=== PATIENT | female | born 1975 | race Caucasian/White ===

== ENCOUNTER 2017-06-19 22:29 | Emergency (ER) | payer SELFPAY ==
--- NOTE | 2017-06-19 22:55 | ER Document Report ---
HPI - HPI Patient complains to provider of: Left foot injury Pain Level: 3 Context: Patient is a 41-year-old female comes emergency department for chief complaint of pain with swelling and bruising to her first and second toes of the left foot. She states that she accidentally kicked a dresser this morning when she got up. She can walk but she is limping. She denies any daily medications or known medical problems. She denies any other complaints. - REPRODUCTIVE Reproductive: DENIES: : Past Medical History - General Information source: Patient - Social History Smoking Status: Never Smoker Frequency of alcohol use: None Drug Abuse: None Lives with: Family Family History: Reviewed & Not Pertinent - Medical History Medical History: Negative Endocrine Medical History: Denies: Hx Diabetes Mellitus Type 1, Hx Diabetes Mellitus Type 2 Past Surgical History: Reports: Hx Cholecystectomy, Hx Gynecologic Surgery - explor lap-- was discovered to have endometriosis 2 years ago - Immunizations Hx Diphtheria, Pertussis, Tetanus Vaccination: Yes Vertical Provider Document - CONSTITUTIONAL General Appearance: WD/WN, Mild Distress - Patient winces with walking but otherwise is in no distress - INFECTION CONTROL TRAVEL OUTSIDE OF THE [place] IN LAST 30 DAYS: No - HEENT HEENT: Atraumatic, Normocephalic - NECK Neck: Normal Inspection - RESPIRATORY Respiratory: Breath Sounds Normal, No Respiratory Distress O2 Sat by Pulse Oximetry: 98 - CARDIOVASCULAR Cardiovascular: Regular Rate, Regular Rhythm - GI/ABDOMEN Gastrointestinal: Abdomen Soft, Abdomen Non-Tender - BACK Back: Normal Inspection - MUSCULOSKELETAL/EXTREMETIES Musculoskeletal/Extremeties: Tender - Over the dorsal aspect, plantar aspect is normal. Good capillary refill and sensation. Range of motion still intact. No obvious deformity. Normal lower extremity exam otherwise. - NEURO Level of Consciousness: Awake, Alert, Appropriate - DERM Integumentary: Warm, Dry, No Rash Course - Re-evaluation Re-evalutation: Patient asking to leave, delay in obtaining radiology read. First view shows questionable tiny nondisplaced fracture of the tuft of the second toe of the left foot. No lateral view. Because of bruising and questionable nondisplaced fracture I did provide patient with pain medication to a very limited amount, patient placed in torey tape and postop shoe on patient preference, discussed care, follow-up, return precautions. Patient given supplies to perform torey taping at home. Patient states satisfaction and agreement. - Vital Signs Vital signs: Temp Pulse Resp BP Pulse Ox 98.2 F 71 20 127/69 H 98 06/19/17 22:49 06/19/17 22:49 06/19/17 22:49 06/19/17 22:49 06/19/17 22:49 Procedures - Immobilization Left foot Pre-Proc Neuro Vasc Exam: Normal Immobilizer type: Other - Torye taping with postop shoe performed for first and second toes of the left foot Post-Proc Neuro Vasc Exam: Normal Alignment checked and good: Yes Discharge - Discharge Clinical Impression: Toe injury Qualifiers: Encounter type: initial encounter Laterality: left Qualified Code(s): S99.922A - Unspecified injury of left foot, initial encounter Condition: Stable Disposition: HOME, SELF-CARE Additional Instructions: There is a questionable nondisplaced fracture pending final reading of the x-ray , no dislocations or displaced fractures are seen. Torey tape the toes to help them heal and improve, elevate, you can apply ice 3-4 times a day, take the ibuprofen to reduce swelling, take the pain medication only if needed. Elevate your foot the next couple of days. After swelling is gone and pain resolves resume normal activity. Return for any concerning symptoms including severe swelling or pain. Prescriptions: Hydrocodone/Acetaminophen [[place] 5-325 Tablet] 1 - 2 each PO Q4H PRN #8 tablet PRN Reason: Ibuprofen 800 mg PO Q8 #20 tablet
[2017-06-19] MEDS ORDERED: HYDROCODONE/ACETAMINOPHEN 5-325 MG (6 TAB/ER DISP) PO PRN (23:34)
--- NOTE | 2017-06-19 23:43 | RADIOLOGY REPORT (SQ) ---
EXAM DESCRIPTION: TOE LEFT CLINICAL HISTORY: 41 years, Female, pain s/p injury COMPARISON: None. NUMBER OF VIEWS: Two Technique: Two frontal views. Limited: No lateral view. Findings: Bones, joints, and soft tissues of the left second toe appear intact. IMPRESSION: No acute findings. Limited: No lateral view.
[2017-06-19 23:44] VITALS: BP 106/68
== END 2017-06-19 23:44 | disposition home or self-care (01) ==
LOC: ER 22:29
DX: S90.112A Contusion of left great toe without damage to nail, initial encounter (principal); S90.122A Contusion of left lesser toe(s) without damage to nail, initial encounter; W22.03XA Walked into furniture, initial encounter; Y93.89 Activity, other specified
CPT/HCPCS: 99283

== ENCOUNTER 2019-06-12 00:21 | Emergency (ER) | payer SELFPAY ==
[2019-06-12] MEDS ORDERED: ACETAMINOPHEN 325 MG TABLET PO ONE (02:08)
--- NOTE | 2019-06-12 04:55 | RADIOLOGY REPORT (SQ) ---
EXAM DESCRIPTION: XR ANKLE 3 OR MORE VIEWS COMPLETED DATE/TME: 06/12/2019 00:00 CLINICAL HISTORY: 43 years, Female, PAIN COMPARISON: None. NUMBER OF VIEWS: 3 TECHNIQUE: 3 views left ankle LIMITATIONS: None. FINDINGS: Diffuse soft tissue swelling. Avulsion fracture of the lateral malleolus. No dislocation. Well-corticated ossific density near the medial malleolus may reflect old injury. Calcaneal spurs. IMPRESSION: Acute avulsion fracture of the lateral malleolus. Soft tissue swelling copyright 2010 [employer]- All Rights Reserved
[2019-06-12 05:25] VITALS: BP 105/64
--- NOTE | 2019-06-12 05:42 | ER Document Report ---
ED General - General Chief Complaint: Ankle Injury Stated Complaint: FALL/LEFT ANKLE INJURY Time Seen by Provider: 06/12/19 05:36 Mode of Arrival: Wheelchair Information source: Patient TRAVEL OUTSIDE OF THE [place] IN LAST 30 DAYS: No - HPI Onset: Other - yesteray evening Onset/Duration: Sudden Quality of pain: Sharp, Throbbing Severity: Severe Pain Level: 4 Associated symptoms: Other - patient everted her left ankle/foot when walking on steps when she missed a step Exacerbated by: Other - weight bearing, movement of left foot/ankle Relieved by: Remaining still, Other - rest Similar symptoms previously: No Recently seen / treated by doctor: No Notes: 43 year old female with no significant PMH here for left ankle pain, swelling, and bruising since twisting her left ankle and hearing a pop when missing a step. The patient cannot no longer weight bear and her left ankle is severely swollen and bruised. The patient denies numbness, tingling, or physical weakness in her left foot. - Related Data Allergies/Adverse Reactions: No Known Allergies Allergy (Verified 06/12/19 02:04) Home Medications: IRON. GERD Past Medical History - General Information source: Patient - Social History Smoking Status: Current Every Day Smoker Frequency of alcohol use: None Drug Abuse: None Lives with: Alone Family History: Reviewed & Not Pertinent Patient has suicidal ideation: No Patient has homicidal ideation: No Endocrine Medical History: Denies: Hx Diabetes Mellitus Type 1, Hx Diabetes Mellitus Type 2 Renal/ Medical History: Denies: Hx Peritoneal Dialysis Past Surgical History: Reports: Hx Cholecystectomy, Hx Gynecologic Surgery - explor lap-- was discovered to have endometriosis 2 years ago - Immunizations Hx Diphtheria, Pertussis, Tetanus Vaccination: Yes Review of Systems - Review of Systems Constitutional: No symptoms reported EENT: No symptoms reported Cardiovascular: No symptoms reported Respiratory: No symptoms reported Gastrointestinal: No symptoms reported Genitourinary: No symptoms reported Female Genitourinary: No symptoms reported Physical Exam - Vital signs Vitals: Temp Pulse Resp BP Pulse Ox 98.2 F 70 18 133/76 H 100 06/12/19 00:47 06/12/19 00:47 06/12/19 00:47 06/12/19 00:47 06/12/19 00:47 - Notes Notes: GENERAL: Well-appearing, well-nourished and in no acute distress. HEAD: Atraumatic, normocephalic. EYES: Pupils equal round and reactive to light, extraocular movements intact, sclera anicteric, conjunctiva are normal. ENT: TMs normal, nares patent, oropharynx clear without exudates. Moist mucous membranes. NECK: Normal range of motion, supple without lymphadenopathy or JVD. LUNGS: Breath sounds clear to auscultation bilaterally and equal. No wheezes rales or rhonchi. HEART: Regular rate and rhythm without murmurs, rubs or gallops. ABDOMEN: Soft, nontender, normoactive bowel sounds. No guarding, no rebound. No masses appreciated. EXTREMITIES: Left ankle with significant swelling, bruising, tenderness on lateral aspect. 2+ PT and DP pulses in left foot. Decreased ROM of left ankle due to pain and swelling. NEUROLOGICAL: Cranial nerves II through XII grossly intact. Normal speech, normal gait. PSYCH: Normal mood, normal affect. SKIN: Bruising of skin in area of left lateral ankle. Warm, Dry, normal turgor, no rashes or lesions noted. Course - Re-evaluation Re-evalutation: 06/12/19 06:01 The patient had an avulsion fracture of her distal fibula with significant swelling and bruising. The patient was given crutches and a brace and the plan is for her to follow up with an Orthopedic Surgeon. The patient was given a short course of [place] for pain not well controlled. - Vital Signs Vital signs: Temp Pulse Resp BP Pulse Ox 97.8 F 64 20 105/64 100 06/12/19 05:24 06/12/19 05:24 06/12/19 05:24 06/12/19 05:24 06/12/19 05:24 - Diagnostic Test Radiology reviewed: Image reviewed, Reports reviewed Discharge - Discharge Clinical Impression: Avulsion fracture of distal fibula Condition: Stable Disposition: HOME, SELF-CARE Instructions: Avulsion Fracture of the Ankle ([facility]) Additional Instructions: USe Crutches and a splint or an martin wrap. Ice your ankle and keep it elevated while at rest. Use Tylenol and Motrin for pain and [place] for pain not well controlled. Follow up with an Orthopedic Surgeon such as Dr. Ferrer. Prescriptions: Hydrocodone/Acetaminophen [[place] 5-325 mg Tablet] 1 tab PO Q8H PRN #10 tablet PRN Reason: Hydrocodone/Acetaminophen [[place] 5-325 mg Tablet] 1 tab PO Q8H PRN #10 tablet PRN Reason: Referrals: GEORGE FERRER JR, DO [ACTIVE PROVISIONAL STAFF] - Follow up as needed
== END 2019-06-12 05:56 | disposition home or self-care (01) ==
LOC: ER 00:21
DX: S82.832A Other fracture of upper and lower end of left fibula, initial encounter for closed fracture (principal); X50.0XXA Overexertion from strenuous movement or load, initial encounter; F17.200 Nicotine dependence, unspecified, uncomplicated; Z90.49 Acquired absence of other specified parts of digestive tract

== ENCOUNTER 2019-06-18 21:19 | Inpatient (IN) | payer SELFPAY ==
--- NOTE | 2019-06-18 21:59 | ER Document Report ---
ED Medical Screen (RME) - General Chief Complaint: Lower Abdominal Pain Stated Complaint: EPIGASTRIC PAIN,GROIN/RECTAL PAIN Time Seen by Provider: 06/18/19 21:54 Mode of Arrival: Ambulatory Information source: Patient Notes: 43-year-old female presents emergency department with complaints of left lower quad abdominal pain that started yesterday around noon. She reports occasional pain with void. She denies fever vomiting diarrhea. History of endometriosis. She reports it hurts when she walks or coughs and she will occasionally feel short of breath when she is walking due to the pain. I have greeted and performed a rapid initial assessment of this patient. A comprehensive ED assessment and evaluation of the patient, analysis of test results and completion of the medical decision making process will be conducted by additional ED providers. TRAVEL OUTSIDE OF THE [place] IN LAST 30 DAYS: No - Related Data Allergies/Adverse Reactions: No Known Allergies Allergy (Verified 06/18/19 21:53) Home Medications: Patient does not know Past Medical History Endocrine Medical History: Denies: Hx Diabetes Mellitus Type 1, Hx Diabetes Mellitus Type 2 Renal/ Medical History: Denies: Hx Peritoneal Dialysis Past Surgical History: Reports: Hx Cholecystectomy, Hx Gynecologic Surgery - explor lap-- was discovered to have endometriosis 2 years ago - Immunizations Hx Diphtheria, Pertussis, Tetanus Vaccination: Yes Physical Exam - Vital signs Vitals: Temp Pulse Resp BP Pulse Ox 98.6 F 72 20 128/66 H 100 06/18/19 21:39 06/18/19 21:39 06/18/19 21:39 06/18/19 21:39 06/18/19 21:39 Course - Vital Signs Vital signs: Temp Pulse Resp BP Pulse Ox 98.6 F 72 20 128/66 H 100 06/18/19 21:39 06/18/19 21:39 06/18/19 21:39 06/18/19 21:39 06/18/19 21:39
--- NOTE | 2019-06-18 22:25 | RADIOLOGY REPORT (SQ) ---
EXAM DESCRIPTION: XR CHEST 2 VIEWS COMPLETED DATE/TME: 06/18/2019 21:58 CLINICAL HISTORY: 43 years, Female, shortness of breath COMPARISON: None. NUMBER OF VIEWS: Two TECHNIQUE: Frontal and lateral radiographs were obtained LIMITATIONS: None. FINDINGS: Cardiac and mediastinal contours are normal. However, there is deviation of the trachea towards the right. Lungs are otherwise clear. No pleural effusion or pneumothorax. IMPRESSION: No acute disease within the chest. Deviation of the trachea towards the right. A space-occupying paratracheal mass is a possibility, to include lymphadenopathy or thyromegaly. Correlation with CT of the chest is recommended for further assessment. copyright 2010 [employer]- All Rights Reserved
[2019-06-18 22:57] LABS: ABSOLUTE BASOPHILS # (AUTO) 0.1 10^3/uL (0.0-0.2); ABSOLUTE EOSINOPHILS # (AUTO) 0.1 10^3/uL (0.0-0.6); ABSOLUTE LYMPHOCYTES (AUTO) 1.8 10^3/uL (0.5-4.7); ABSOLUTE MONOCYTES (AUTO) 0.8 10^3/uL (0.1-1.4); ABSOLUTE NEUT (AUTO) 7.8 10^3/uL (1.7-8.2); BASOPHILS % (AUTO) 0.5 % (0-2); EOSINOPHILS % (AUTO) 1.1 % (0-6); HEMOGLOBIN 8.2 g/dL (12.0-15.5); LYMPHOCYTES % (AUTO) 16.8 % (13-45); MEAN CORPUSCULAR HEMOGLOBIN 20.3 pg (27.0-33.4); MEAN CORPUSCULAR HGB CONC 31.6 g/dL (32.0-36.0); MONOCYTES % (AUTO) 7.7 % (3-13); PLATELET COUNT 428 10^3/uL (150-450); RED BLOOD COUNT 4.04 10^6/uL (3.72-5.28); RED CELL DISTRIBUTION WIDTH 18.7 % (11.5-14.0); SEGMENTED NEUTROPHILS % (AUTO) 73.9 % (42-78); TOTAL CELLS COUNTED % (AUTO) 100 %; WHITE BLOOD COUNT 10.6 10^3/uL (4.0-10.5)
[2019-06-18 23:08] LABS: ALBUMIN 3.9 g/dL (3.5-5.0); ALKALINE PHOSPHATASE 70 U/L (38-126); ANION GAP 8 (5-19); ASPARTATE AMINO TRANSFERASE 16 U/L (14-36); BILIRUBIN,DIRECT 0.2 mg/dL (0.0-0.4); BILIRUBIN,TOTAL 0.6 mg/dL (0.2-1.3); BLOOD UREA NITROGEN 11 mg/dL (7-20); CALCIUM 8.4 mg/dL (8.4-10.2); CARBON DIOXIDE 28 mmol/L (22-30); CHLORIDE 103 mmol/L (98-107); GLUCOSE 86 mg/dL (75-110); POTASSIUM 3.5 mmol/L (3.6-5.0); TOTAL PROTEIN 7.3 g/dL (6.3-8.2)
[2019-06-18 23:14] LABS: MEAN CORPUSCULAR VOLUME 64 fl (80-97)
[2019-06-18 23:16] LABS: ANISOCYTOSIS 2+; HYPOCHROMASIA 3+; OVALOCYTES 1+; PLATELET COMMENT ADEQUATE; POIKILOCYTOSIS 1+; TEAR DROP CELLS SLIGHT
[2019-06-19 03:33] LABS: APPEARANCE,URINE SLIGHTLY-CLOUDY; BILIRUBIN,URINE NEGATIVE (NEGATIVE); COLOR,URINE YELLOW; GLUCOSE, URINE NEGATIVE (NEGATIVE); KETONES,URINE NEGATIVE (NEGATIVE); PROTEIN,URINE NEGATIVE (NEGATIVE); URINE SPECIFIC GRAVITY 1.015
[2019-06-19] MEDS ORDERED: MORPHINE SULFATE 10 MG/ML INJ IV ONE (04:13)
--- NOTE | 2019-06-19 05:43 | RADIOLOGY REPORT (SQ) ---
EXAM DESCRIPTION: CT NECK CHEST WITHOUT IV CONTRAST COMPLETED DATE/TME: 06/19/2019 05:07 CLINICAL HISTORY: 43 years Female, eval for mass Comparison: None. Technique: No contrast. Coronal and sagittal reformat. This exam was performed according to our departmental dose-optimization program, which includes automated exposure control, adjustment of the mA and/or kV according to patient size and/or use of iterative reconstruction technique. [facility]: Dose Right [facility]: CareDose [facility]: Dose Right [facility]: Teradose 4D [facility]: Tr[employer] Systems LIMITATIONS: None Findings: Orbits, paranasal sinuses, and skull base: Partially visualized components appear unremarkable. Nasopharynx: Normal. Suprahyoid neck: Normal oropharynx, oral cavity, parapharyngeal space, and retropharyngeal space. Infrahyoid neck: Normal larynx, hypopharynx, and supraglottis. Thyroid: 5.9 x 3.4 x 4.0 cm complex cystic mass of the left thyroid fossa with moderate mass effect on the trachea. Thoracic inlet: Normal lung apices and brachial plexus. Lymph nodes: Normal. No lymphadenopathy. Vascular structures: Normal. Other findings: None. Impression: 5.9 cm mass may involve the left thyroid. Differential diagnosis includes neoplasm and abscess. Recommend thyroid ultrasound.
--- NOTE | 2019-06-19 05:53 | RADIOLOGY REPORT (SQ) ---
EXAM: CT Chest, Abdomen and Pelvis With Intravenous Contrast EXAM DATE/TIME: 06/19/2019 5:01 AM CLINICAL HISTORY: The patient is 43 years old and is Female; LLQ pain , abnormal chest radiograph TECHNIQUE: Axial computed tomography images of the chest, abdomen and pelvis with intravenous contrast. Sagittal and coronal reformatted images were created and reviewed. Delayed images were obtained. This CT exam was performed using one or more of the following dose reduction techniques: automated exposure control, adjustment of the mA and/or kV according to patient size, and/or use of iterative reconstruction technique. COMPARISON: Chest radiograph from 06/18/2019; MRI of the pelvis from 06/22/2011 FINDINGS: CHEST: LUNGS: No acute findings visualized. No mass. No consolidative infiltrate. PLEURAL SPACE: No significant effusion. No pneumothorax. HEART: No significant cardiomegaly. No pericardial effusion. THYROID: There is masslike enlargement of the left lobe of the thyroid. The visualized portion measures 4.8 x 4.8 cm. This is heterogeneous, with decreased density centrally. This extends into the superior aspect of the mediastinum. In addition, this causes mass effect on the trachea which is slightly deviated to the right. Minimal associated tracheal narrowing at this level. ABDOMEN: LIVER: Unremarkable. No obvious mass. GALLBLADDER AND BILE DUCTS: The gallbladder is surgically absent. No significant biliary ductal dilatation appreciated. PANCREAS: Unremarkable. No ductal dilation. No obvious mass. SPLEEN: Unremarkable. No splenomegaly. ADRENALS: Unremarkable. No adrenal nodules or masses identified. KIDNEYS AND URETERS: Unremarkable. No hydronephrosis. No solid mass. STOMACH AND BOWEL: No bowel obstruction. Sigmoid diverticulosis is noted. There is also focal wall thickening and inflammatory changes at the level of the sigmoid colon, most compatible with diverticulitis. PELVIS: APPENDIX: No findings to suggest acute appendicitis. BLADDER: Unremarkable. No obvious mass. REPRODUCTIVE: Tampon in place within the vaginal canal. There are right ovarian cysts measuring up to 4.4 cm in diameter. Smaller cysts or follicles noted in the left ovary. The uterus is retroflexed. The uterus is slightly heterogeneous, with tiny areas of decreased density noted. CHEST, ABDOMEN and PELVIS: INTRAPERITONEAL SPACE: Unremarkable. No significant fluid collection. No free air. BONES/JOINTS: No acute fracture. Grade II spondylolisthesis at L5/S1. SOFT TISSUES: No significant abnormalities in the superficial soft tissues. VASCULATURE: Unremarkable. No aortic aneurysm. LYMPH NODES: No significant lymph node enlargement. IMPRESSION: 1. Findings most compatible with sigmoid diverticulitis. No associated abscess. Underlying colonic malignancy cannot be completely excluded, and followup should be performed as indicated. 2. Masslike enlargement of the left lobe of the thyroid. Associated mild effect on the trachea which is slightly deviated to the right and minimally narrowed at this level. Recommend thyroid US. Reference: J Am Des Radiol. 2015 Jun;12(2): 143-50 3. Right ovarian cysts measuring up to 4.4 cm in diameter. Smaller cysts or follicles noted in the left ovary. No follow-up imaging is recommended. Reference: J Am Des Radiol 2013;10:675-681
[2019-06-19] MEDS ORDERED: NORMAL SALINE 1000 ML 1,000 ML IV ONE ×2 (07:04)
--- NOTE | 2019-06-19 07:07 | ER Document Report ---
ED GI/ - General Chief Complaint: Lower Abdominal Pain Stated Complaint: EPIGASTRIC PAIN,GROIN/RECTAL PAIN Time Seen by Provider: 06/18/19 21:54 Mode of Arrival: Ambulatory Notes: 43-year-old female patient presents emergency department chief complaint of left lower quadrant abdominal pain that started yesterday about noon. Patient reports pain is persistent and severe. Nothing makes the pain better, movement or walking makes it worse she denies any fever, vomiting or diarrhea. Reports nausea. She denies any recent constipation, states last time she had a normal bowel movement was last night at 9 PM. Her only medical history is endometriosis and a cholecystectomy. TRAVEL OUTSIDE OF THE [place] IN LAST 30 DAYS: No - Related Data Allergies/Adverse Reactions: No Known Allergies Allergy (Verified 06/18/19 21:53) Home Medications: Patient does not know Past Medical History - General Information source: Patient - Social History Smoking Status: Current Every Day Smoker Family History: Reviewed & Not Pertinent Patient has suicidal ideation: No Patient has homicidal ideation: No Endocrine Medical History: Denies: Hx Diabetes Mellitus Type 1, Hx Diabetes Mellitus Type 2 Renal/ Medical History: Denies: Hx Peritoneal Dialysis Past Surgical History: Reports: Hx Cholecystectomy, Hx Gynecologic Surgery - explor lap-- was discovered to have endometriosis 2 years ago - Immunizations Hx Diphtheria, Pertussis, Tetanus Vaccination: Yes Review of Systems - Review of Systems Constitutional: No symptoms reported EENT: No symptoms reported Cardiovascular: No symptoms reported Respiratory: No symptoms reported Gastrointestinal: Abdominal pain, Nausea Genitourinary: Frequency Female Genitourinary: No symptoms reported Musculoskeletal: No symptoms reported Skin: No symptoms reported Hematologic/Lymphatic: No symptoms reported Neurological/Psychological: No symptoms reported Physical Exam - Vital signs Vitals: Temp Pulse Resp BP Pulse Ox 98.6 F 72 20 128/66 H 100 06/18/19 21:39 06/18/19 21:39 06/18/19 21:39 06/18/19 21:39 06/18/19 21:39 - Notes Notes: PHYSICAL EXAMINATION: GENERAL: Well-appearing, well-nourished and in no acute distress. HEAD: Atraumatic, normocephalic. EYES: Pupils equal round and reactive to light, extraocular movements intact, conjunctiva are normal. ENT: Nares patent, oropharynx clear without exudates. Moist mucous membranes. NECK: Normal range of motion, supple, palpable mass on the left side of the neck. LUNGS: Breath sounds clear to auscultation bilaterally and equal. No wheezes rales or rhonchi. HEART: Regular rate and rhythm without murmurs ABDOMEN: Soft, nondistended abdomen. Point tenderness to the mid abdomen and left lower quadrant. No masses appreciated. Female : deferred Musculoskeletal: Normal range of motion, no pitting or edema. No cyanosis. NEUROLOGICAL: Cranial nerves grossly intact. Normal speech, normal gait. Normal sensory, motor exams PSYCH: Normal mood, normal affect. SKIN: Warm, Dry, normal turgor, no rashes or lesions noted. Course - Re-evaluation Re-evalutation: Laboratory 06/18/19 06/18/19 06/18/19 22:44 22:44 22:44 WBC 10.6 H RBC 4.04 Hgb 8.2 L Hct 26.0 L MCV 64 L MCH 20.3 L MCHC 31.6 L RDW 18.7 H Plt Count 428 Lymph % (Auto) 16.8 [place] % (Auto) 7.7 Eos % (Auto) 1.1 Baso % (Auto) 0.5 Absolute Neuts (auto) 7.8 Absolute Lymphs (auto) 1.8 Absolute Monos (auto) 0.8 Absolute Eos (auto) 0.1 Absolute Basos (auto) 0.1 Seg Neutrophils % 73.9 Platelet Comment ADEQUATE Hypochromasia 3+ Poikilocytosis 1+ Anisocytosis 2+ Microcytosis 3+ Tear Drop Cells SLIGHT Ovalocytes 1+ Sodium 138.7 Potassium 3.5 L Chloride 103 Carbon Dioxide 28 Anion Gap 8 BUN 11 Creatinine 0.63 Est GFR ( Amer) > 60 Est GFR (MDRD) Non-Af > 60 Glucose 86 Calcium 8.4 Total Bilirubin 0.6 Direct Bilirubin 0.2 Neonat Total Bilirubin Not Reportable Neonat Direct Bilirubin Not Reportable Neonat Indirect Bili Not Reportable AST 16 ALT 8 Alkaline Phosphatase 70 Total Protein 7.3 Albumin 3.9 Lipase Urine Color YELLOW Urine Appearance SLIGHTLY-CLOUDY Urine pH 6.0 Ur Specific [place] 1.015 Urine Protein NEGATIVE Urine Glucose (UA) NEGATIVE Urine Ketones NEGATIVE Urine Blood MODERATE H Urine Nitrite (Reflex) NEGATIVE Urine Bilirubin NEGATIVE Urine Urobilinogen 2.0 H Leukocyte Esterase Rfl NEGATIVE Urine RBC (Auto) 7 Urine Bacteria (Auto) 1+ Urine WBC (Reflex) 3 Squamous Epi Cells Auto 10 Urine Mucus (Auto) OCC Urine Ascorbic Acid 40 H 06/18/19 22:44 WBC RBC Hgb Hct MCV MCH MCHC RDW Plt Count Lymph % (Auto) [place] % (Auto) Eos % (Auto) Baso % (Auto) Absolute Neuts (auto) Absolute Lymphs (auto) Absolute Monos (auto) Absolute Eos (auto) Absolute Basos (auto) Seg Neutrophils % Platelet Comment Hypochromasia Poikilocytosis Anisocytosis Microcytosis Tear Drop Cells Ovalocytes Sodium Potassium Chloride Carbon Dioxide Anion Gap BUN Creatinine Est GFR ( Amer) Est GFR (MDRD) Non-Af Glucose Calcium Total Bilirubin Direct Bilirubin Neonat Total Bilirubin Neonat Direct Bilirubin Neonat Indirect Bili AST ALT Alkaline Phosphatase Total Protein Albumin Lipase 17.2 L Urine Color Urine Appearance Urine pH Ur Specific [place] Urine Protein Urine Glucose (UA) Urine Ketones Urine Blood Urine Nitrite (Reflex) Urine Bilirubin Urine Urobilinogen Leukocyte Esterase Rfl Urine RBC (Auto) Urine Bacteria (Auto) Urine WBC (Reflex) Squamous Epi Cells Auto Urine Mucus (Auto) Urine Ascorbic Acid Chest X-Ray 06/18/19 21:58 IMPRESSION: No acute disease within the chest. Deviation of the trachea towards the right. A space-occupying paratracheal mass is a possibility, to include lymphadenopathy or thyromegaly. Correlation with CT of the chest is recommended for further assessment. copyright 2011 [employer]- All Rights Reserved Abdomen/Pelvis CT 06/19/19 04:12 IMPRESSION: 1. Findings most compatible with sigmoid diverticulitis. No associated abscess. Underlying colonic malignancy cannot be completely excluded, and followup should be performed as indicated. 2. Masslike enlargement of the left lobe of the thyroid. Associated mild effect on the trachea which is slightly deviated to the right and minimally narrowed at this level. Recommend thyroid US. Reference: J Am Des Radiol. 2015 b;12(2): 143-50 3. Right ovarian cysts measuring up to 4.4 cm in diameter. Smaller cysts or follicles noted in the left ovary. No follow-up imaging is recommended. Reference: J Am Des Radiol 2013;10:675-[address] 06/19/19 04:13 IMPRESSION: 1. Findings most compatible with sigmoid diverticulitis. No associated abscess. Underlying colonic malignancy cannot be completely excluded, and followup should be performed as indicated. 2. Masslike enlargement of the left lobe of the thyroid. Associated mild effect on the trachea which is slightly deviated to the right and minimally narrowed at this level. Recommend thyroid US. Reference: J Am Des Radiol. 2015 Jun;12(2): 143-50 3. Right ovarian cysts measuring up to 4.4 cm in diameter. Smaller cysts or follicles noted in the left ovary. No follow-up imaging is recommended. Reference: J Am Des Radiol 2013;10:675-681 Work-up as outlined above. Patient appears nontoxic, she does appear to be in moderate distress. She was given pain medication down here in the emergency department. She has had no episodes of vomiting. Will attempt to get patient admitted for diverticulitis as well as worked up for sizable thyroid mass. 06/19/19 07:36 Patient accepted for admission by hospitalist, Dr. Jay. - Vital Signs Vital signs: Temp Pulse Resp BP Pulse Ox 98.3 F 61 18 111/67 98 06/19/19 06:42 06/19/19 06:42 06/19/19 06:42 06/19/19 06:42 06/19/19 06:42 - Laboratory Result Diagrams: 06/18/19 22:44 06/18/19 22:44 Laboratory results interpreted by me: 06/18/19 06/18/19 06/18/19 22:44 22:44 22:44 WBC 10.6 H Hgb 8.2 L Hct 26.0 L MCV 64 L MCH 20.3 L MCHC 31.6 L RDW 18.7 H Potassium 3.5 L Lipase Urine Blood MODERATE H Urine Urobilinogen 2.0 H Urine Ascorbic Acid 40 H 06/18/19 22:44 WBC Hgb Hct MCV MCH MCHC RDW Potassium Lipase 17.2 L Urine Blood Urine Urobilinogen Urine Ascorbic Acid Discharge - Discharge Clinical Impression: Diverticulitis, Thyroid mass of unclear etiology Condition: Stable Disposition: ADMITTED INPATIENT Admitting Provider: Misty (Hospitalist) Unit Admitted: Medical Floor
[2019-06-19] MEDS ORDERED: CIPROFLOXACIN 400 MG/D5W RTU 400 MG/200 ML RTUPB IV ONE (07:15)
[2019-06-19] MEDS ORDERED: HYDROMORPHONE HCL INJ/PF 2 MG/ML AMPULE IV ONE (07:15)
[2019-06-19] MEDS ORDERED: METRONIDAZOLE 500 MG/NS RTU 500 MG/100 ML RTUPB IV ONE (07:30)
[2019-06-19 07:36] LABS: FREE T3 2.74 pg/mL (2.77-5.27); FREE T4 (FREE THYROXINE) 0.79 ng/dL (0.78-2.19)
[2019-06-19 07:49] LABS: THYROID STIMULATING HORMONE 2.35 uIU/mL (0.47-4.68)
--- NOTE | 2019-06-19 09:05 | EKG REPORT ---
SEVERITY:- ABNORMAL ECG - SINUS RHYTHM LEFT VENTRICULAR HYPERTROPHY : Confirmed by: Doron Arauz MD 19-Jun-2019 07:02:22
[2019-06-19] MEDS ORDERED: ACETAMINOPHEN 325 MG TABLET PO PRN (09:50)
[2019-06-19] MEDS ORDERED: TEMAZEPAM 7.5 MG CAPSULE PO PRN (09:50)
[2019-06-19] MEDS ORDERED: IPRATROPIUM/ALBUTEROL 0.5-2.5 MG/3 ML AMPUL NEB PRN (09:50)
[2019-06-19] MEDS ORDERED: MAG HYDROX/AL HYDROX/SIMETH SUSP 30 ML UDCUP PO PRN (09:50)
[2019-06-19] MEDS ORDERED: FERROUS SULFATE 325 MG TABLET PO SCH (10:00)
[2019-06-19] MEDS ORDERED: SIMETHICONE 180 MG PO SCH (10:00)
[2019-06-19] MEDS: CEFTRIAXONE 2 GM/D5W RTU 2 GM/50 ML RTUPB IV SCH (10:18)
[2019-06-19] MEDS: SUCRALFATE 1 GM TABLET PO SCH ×3 (10:24→21:09)
[2019-06-19] MEDS: DOCUSATE SODIUM 100 MG/10 ML UDC PO SCH (10:24)
[2019-06-19] MEDS: FAMOTIDINE 20 MG TABLET PO SCH ×2 (10:24→21:09)
[2019-06-19] MEDS: ENOXAPARIN SODIUM INJ 40 MG/0.4 ML DISP.SYRIN SUBCUT SCH (10:24)
[2019-06-19 10:42] LABS: ABSOLUTE RETICS # 0.046 10^6/uL (0.028-0.122); RETICULOCYTE COUNT (AUTO) 1.14 % (0.66-2.85)
[2019-06-19] MEDS: SIMETHICONE 80 MG TAB.CHEW PO SCH (11:18)
[2019-06-19 11:33] LABS: FOLATE 7.82 ng/mL (>2.76)
[2019-06-19 12:07] LABS: PATH REVIEW PATHOLOGIST REVIEWED
[2019-06-19] MEDS: METRONIDAZOLE 500 MG/NS RTU 500 MG/100 ML RTUPB IV SCH ×2 (12:47→17:45)
[2019-06-19] MEDS: NORMAL SALINE 1000 ML 1,000 ML IV PRN (13:30)
[2019-06-19] MEDS: ONDANSETRON HCL INJ/PF 4 MG/2 ML SDV IV PRN ×2 (14:44→21:10)
[2019-06-19] MEDS ORDERED: INFLUENZA QUAD (6MOS+) 2019-20 VAC 0.5 ML SYR IM ONE (14:56)
[2019-06-19] MEDS: OXYCODONE-ACETAMINOPHEN 5-325 MG TABLET PO PRN ×2 (15:57→20:17)
--- NOTE | 2019-06-19 17:18 | PDOC H&P ---
History of Present Illness Admission Date/PCP: 06/19/19 07:49 History of Present Illness: CRUZITO PANDYA is a 43 year old female with no significant past medical history except for endometriosis status post surgery 2 years ago, presenting to ED complaining of left lower quadrant abdominal pain x1 day. Pain is constant, sharp, 5/5, nonradiating, worse with sitting and movement, no alleviating factor. She denies any fever, chills, nausea, vomiting, diarrhea, constipation or any urinary symptoms, she is p.o. tolerant. In ED CT of abdomen showed compatible with sigmoid diverticulitis. Past Medical History Endocrine Medical History: Denies: Diabetes Mellitus Type 1, Diabetes Mellitus Type 2 Past Surgical History Past Surgical History: Reports: Cholecystectomy Social History Smoking Status: Current Every Day Smoker Electronic Cigarette use?: No Number of Years Smokin Frequency of Alcohol Use: Rare Hx Recreational Drug Use: No Hx Prescription Drug Abuse: No Family History Family History: Reviewed & Not Pertinent Parental Family History Reviewed: Yes Children Family History Reviewed: Yes Sibling(s) Family History Reviewed.: Yes Medication/Allergy Home Medications: Ferrous Sulfate [Feosol 325 mg Tablet] 325 mg PO DAILY #30 tab 10/20/18 Sucralfate [Carafate 1 gm Tablet] 1 gm PO ACHS #120 tablet 10/20/18 Aspirin/Caffeine [Bc Powder Packet] 1 packet PO BID 06/19/19 Hydrocodone/Acetaminophen [[place] 5-325 mg Tablet] 1 tab PO Q8HP PRN 06/19/19 Simethicone [Gas-X Ultra Strength] 180 mg PO DAILY 06/19/19 Allergies/Adverse Reactions: No Known Allergies Allergy (Verified 06/18/19 21:53) Review of Systems Review of Systems: as per hpi Physical Exam Vital Signs: Temp Pulse Resp BP Pulse Ox 98.1 F 56 L 18 112/61 98 06/19/19 14:09 06/19/19 14:09 06/19/19 14:09 06/19/19 14:09 06/19/19 14:09 Intake & Output 06/18/19 06/19/19 06/20/19 06:59 06:59 06:59 Intake Total 1350 Balance 1350 Weight 110 kg 109.8 kg General appearance: PRESENT: obese Head exam: PRESENT: atraumatic, normocephalic Neck exam: PRESENT: thyromegaly - left side. ABSENT: carotid bruit, JVD, lymphadenopathy Respiratory exam: PRESENT: clear to auscultation jessica. ABSENT: rales, rhonchi, wheezes GI/Abdominal exam: PRESENT: guarding, normal bowel sounds, tenderness. ABSENT: distended, mass, organolmegaly, rebound Neurological exam: PRESENT: alert, awake, oriented to person, oriented to place, oriented to time, oriented to situation, CN II-XII grossly intact. ABSENT: motor sensory deficit Results Laboratory Results: 06/18/19 22:44 06/18/19 22:44 06/18/19 06/18/19 06/18/19 22:44 22:44 22:44 WBC 10.6 H RBC 4.04 Hgb 8.2 L Hct 26.0 L MCV 64 L MCH 20.3 L MCHC 31.6 L RDW 18.7 H Plt Count 428 Seg Neutrophils % 73.9 Retic Count (auto) Sodium 138.7 Potassium 3.5 L Chloride 103 Carbon Dioxide 28 Anion Gap 8 BUN 11 Creatinine 0.63 Est GFR ( Amer) > 60 Glucose 86 Calcium 8.4 Iron TIBC % Saturation Ferritin Total Bilirubin 0.6 AST 16 Alkaline Phosphatase 70 Total Protein 7.3 Albumin 3.9 Lipase Vitamin B12 Folate TSH Free T4 Free T3 pg/mL Urine Color YELLOW Urine Appearance SLIGHTLY-CLOUDY Urine pH 6.0 Ur Specific [place] 1.015 Urine Protein NEGATIVE Urine Glucose (UA) NEGATIVE Urine Ketones NEGATIVE Urine Blood MODERATE H Urine RBC (Auto) 7 06/18/19 06/18/19 06/18/19 22:44 22:44 22:44 WBC RBC Hgb Hct MCV MCH MCHC RDW Plt Count Seg Neutrophils % Retic Count (auto) 1.14 Sodium Potassium Chloride Carbon Dioxide Anion Gap BUN Creatinine Est GFR ( Amer) Glucose Calcium Iron TIBC % Saturation Ferritin Total Bilirubin AST Alkaline Phosphatase Total Protein Albumin Lipase 17.2 L Vitamin B12 Folate TSH 2.35 Free T4 0.79 Free T3 pg/mL 2.74 L Urine Color Urine Appearance Urine pH Ur Specific [place] Urine Protein Urine Glucose (UA) Urine Ketones Urine Blood Urine RBC (Auto) 06/18/19 22:44 WBC RBC Hgb Hct MCV MCH MCHC RDW Plt Count Seg Neutrophils % Retic Count (auto) Sodium Potassium Chloride Carbon Dioxide Anion Gap BUN Creatinine Est GFR ( Amer) Glucose Calcium Iron 16.0 L TIBC 375 % Saturation 4 Ferritin 19.10 Total Bilirubin AST Alkaline Phosphatase Total Protein Albumin Lipase Vitamin B12 242.0 Folate 7.82 TSH Free T4 Free T3 pg/mL Urine Color Urine Appearance Urine pH Ur Specific [place] Urine Protein Urine Glucose (UA) Urine Ketones Urine Blood Urine RBC (Auto) Impressions: Chest X-Ray 06/18/19 21:58 IMPRESSION: No acute disease within the chest. Deviation of the trachea towards the right. A space-occupying paratracheal mass is a possibility, to include lymphadenopathy or thyromegaly. Correlation with CT of the chest is recommended for further assessment. copyright 2010 [employer]- All Rights Reserved Abdomen/Pelvis CT 06/19/19 04:12 IMPRESSION: 1. Findings most compatible with sigmoid diverticulitis. No associated abscess. Underlying colonic malignancy cannot be completely excluded, and followup should be performed as indicated. 2. Masslike enlargement of the left lobe of the thyroid. Associated mild effect on the trachea which is slightly deviated to the right and minimally narrowed at this level. Recommend thyroid US. Reference: J Am Des Radiol. 2014;12(2): 143-50 3. Right ovarian cysts measuring up to 4.4 cm in diameter. Smaller cysts or follicles noted in the left ovary. No follow-up imaging is recommended. Reference: J Am Des Radiol 2013;10:675-[address] 06/19/19 04:13 IMPRESSION: 1. Findings most compatible with sigmoid diverticulitis. No associated abscess. Underlying colonic malignancy cannot be completely excluded, and followup should be performed as indicated. 2. Masslike enlargement of the left lobe of the thyroid. Associated mild effect on the trachea which is slightly deviated to the right and minimally narrowed at this level. Recommend thyroid US. Reference: J Am Des Radiol. 2014;12(2): 143-50 3. Right ovarian cysts measuring up to 4.4 cm in diameter. Smaller cysts or follicles noted in the left ovary. No follow-up imaging is recommended. Reference: J Am Des Radiol 2013;10:675-681 Assessment and Plan - Diagnosis (1) Diverticulitis Is this a current diagnosis for this admission?: Yes Plan: Acute sigmoid diverticulitis. No significant leukocytosis or fever. Empiric IV metronidazole and ceftriaxone. Supportive measures. Follow-up cultures. (2) Obesity (BMI 30-39.9) Is this a current diagnosis for this admission?: Yes Plan: BMI 39.1. TSH T4 T3 WNL. On diet lifestyle modification recommended. (3) Thyroid mass of unclear etiology Is this a current diagnosis for this admission?: Yes Plan: Incidental thyroid mass on CT neck. TSH T3-T4 WNL. Nontender. We will obtain thyroid ultrasound with possible FNA. Consult oncology.
[2019-06-20] MEDS: METRONIDAZOLE 500 MG/NS RTU 500 MG/100 ML RTUPB IV SCH ×5 (00:18→23:07)
[2019-06-20] MEDS: OXYCODONE-ACETAMINOPHEN 5-325 MG TABLET PO PRN ×4 (00:18→21:31)
[2019-06-20] MEDS: ONDANSETRON HCL INJ/PF 4 MG/2 ML SDV IV PRN ×3 (05:23→21:33)
[2019-06-20] MEDS: NORMAL SALINE 1000 ML 1,000 ML IV PRN ×2 (05:24→21:31)
[2019-06-20 05:44] LABS: HEMATOCRIT 23.6 % (36.0-47.0); MEAN CORPUSCULAR HEMOGLOBIN 20.4 pg (27.0-33.4); MEAN CORPUSCULAR HGB CONC 31.3 g/dL (32.0-36.0); MEAN CORPUSCULAR VOLUME 65 fl (80-97); PLATELET COUNT 352 10^3/uL (150-450); RED BLOOD COUNT 3.61 10^6/uL (3.72-5.28); WHITE BLOOD COUNT 6.1 10^3/uL (4.0-10.5)
[2019-06-20 05:56] LABS: ANION GAP 6 (5-19); BLOOD UREA NITROGEN 7 mg/dL (7-20); CALCIUM 7.6 mg/dL (8.4-10.2); CARBON DIOXIDE 27 mmol/L (22-30); CHLORIDE 107 mmol/L (98-107); CHOLESTEROL 123.03 mg/dL (0-200); GLUCOSE 73 mg/dL (75-110); POTASSIUM 3.3 mmol/L (3.6-5.0); TRIGLYCERIDES 37 mg/dL (<150)
[2019-06-20 06:01] LABS: HEMOGLOBIN 7.4 g/dL (12.0-15.5)
[2019-06-20 06:06] LABS: DIRECT LDL 82 mg/dL (<100)
--- NOTE | 2019-06-20 08:33 | PDOC CONSULTATION ---
Consultation Consult Date: 06/20/19 Provider Consulted: GENTRY SPEARS Consult reason:: Hematology/Oncology consultation was requested for patient with thyroid mass and iron deficiency anemia. History of Present Illness Admission Date/PCP: 06/19/19 07:49 History of Present Illness: CRUZITO PANDYA is a 43 year old female who presented to the ED with a 1 day history of severe LUQ pain. It was sharp, like her insides were ripping. No nausea, vomiting, constipation or diarrhea. No fevers. No other significant complaints. CT C/A/P showed evidence of diverticulitis as well as a complex cystic mass on her thyroid. US guided biopsy of the thyroid mass has been ordered. Today, she states that she is feeling better, but pain is still present. Past Medical History Endocrine Medical History: Denies: Diabetes Mellitus Type 1, Diabetes Mellitus Type 2 Renal/ Medical History: Reports: Other - endometriosis with ovarian cysts. Hematology: Denies: Anemia Past Surgical History Past Surgical History: Reports: Cholecystectomy, Other - Endometrial biopsy Social History Information Source: Patient Lives with: Family Smoking Status: Current Every Day Smoker Electronic Cigarette use?: No Number of Years Smokin Frequency of Alcohol Use: Rare Hx Recreational Drug Use: No Hx Prescription Drug Abuse: No Past Social History Note: with 1 adopted son and Grand Daughter Family History Parental Family History Reviewed: Yes - Mother of [place] age 36. Father unknown Children Family History Reviewed: NA Sibling(s) Family History Reviewed.: Yes - Sister of cystic Fibrosis. Medication/Allergy Home Medications: Ferrous Sulfate [Feosol 325 mg Tablet] 325 mg PO DAILY #30 tab 10/20/18 Sucralfate [Carafate 1 gm Tablet] 1 gm PO ACHS #120 tablet 10/20/18 Aspirin/Caffeine [Bc Powder Packet] 1 packet PO BID 06/19/19 Hydrocodone/Acetaminophen [[place] 5-325 mg Tablet] 1 tab PO Q8HP PRN 06/19/19 Simethicone [Gas-X Ultra Strength] 180 mg PO DAILY 06/19/19 Allergies/Adverse Reactions: No Known Allergies Allergy (Verified 06/18/19 21:53) Review of Systems Constitutional: ABSENT: fever(s), headache(s) Eyes: ABSENT: visual disturbances Ears: ABSENT: hearing changes Nose, Mouth, and Throat: PRESENT: other - "bumps" in the back of her throat Respiratory: ABSENT: dyspnea Gastrointestinal: PRESENT: abdominal pain Genitourinary: ABSENT: dysuria Integumentary: ABSENT: rash Neurological: ABSENT: confusion Hematologic/Lymphatic: ABSENT: easy bleeding Physical Exam Vital Signs: Temp Pulse Resp BP Pulse Ox 97.8 F 57 L 18 95/50 L 93 06/20/19 00:04 06/20/19 00:04 06/20/19 00:04 06/20/19 00:04 06/20/19 00:04 Intake & Output 06/19/19 06/20/19 06/21/19 06:59 06:59 06:59 Intake Total 3520 Balance 3520 Weight 110 kg 111.6 kg General appearance: PRESENT: no acute distress, well-developed Exam: 43 year old Over weight, female. Head exam: PRESENT: atraumatic, normocephalic Eye exam: PRESENT: EOMI Mouth exam: PRESENT: tongue midline Neck exam: PRESENT: thyromegaly. ABSENT: tenderness Respiratory exam: PRESENT: clear to auscultation jessica, unlabored Cardiovascular exam: PRESENT: RRR. ABSENT: systolic murmur GI/Abdominal exam: PRESENT: soft, tenderness - Left side throughout. Extremities exam: ABSENT: pedal edema Musculoskeletal exam: PRESENT: normal inspection Neurological exam: PRESENT: alert, awake Psychiatric exam: PRESENT: appropriate affect Skin exam: PRESENT: normal color Results Laboratory Results: 06/20/19 04:12 06/20/19 04:12 06/18/19 06/18/19 06/20/19 22:44 22:44 04:12 WBC 6.1 RBC 3.61 L Hgb 7.4 L Hct 23.6 L MCV 65 L MCH 20.4 L MCHC 31.3 L RDW 19.0 H Plt Count 352 Retic Count (auto) 1.14 Sodium Potassium Chloride Carbon Dioxide Anion Gap BUN Creatinine Est GFR ( Amer) Glucose Calcium Magnesium Iron 16.0 L TIBC 375 % Saturation 4 Ferritin 19.10 Triglycerides Cholesterol LDL Cholesterol Direct VLDL Cholesterol HDL Cholesterol Vitamin B12 242.0 Folate 7.82 06/20/19 04:12 WBC RBC Hgb Hct MCV MCH MCHC RDW Plt Count Retic Count (auto) Sodium 139.5 Potassium 3.3 L Chloride 107 Carbon Dioxide 27 Anion Gap 6 BUN 7 Creatinine 0.59 Est GFR ( Amer) > 60 Glucose 73 L Calcium 7.6 L Magnesium 2.2 Iron TIBC % Saturation Ferritin Triglycerides 37 Cholesterol 123.03 LDL Cholesterol Direct 82 VLDL Cholesterol 7.0 L HDL Cholesterol 36 L Vitamin B12 Folate Impressions: Chest X-Ray 06/18/19 21:58 IMPRESSION: No acute disease within the chest. Deviation of the trachea towards the right. A space-occupying paratracheal mass is a possibility, to include lymphadenopathy or thyromegaly. Correlation with CT of the chest is recommended for further assessment. copyright 2010 [employer]- All Rights Reserved Abdomen/Pelvis CT 06/19/19 04:12 IMPRESSION: 1. Findings most compatible with sigmoid diverticulitis. No associated abscess. Underlying colonic malignancy cannot be completely excluded, and followup should be performed as indicated. 2. Masslike enlargement of the left lobe of the thyroid. Associated mild effect on the trachea which is slightly deviated to the right and minimally narrowed at this level. Recommend thyroid US. Reference: J Am Des Radiol. 2014;12(2): 143-50 3. Right ovarian cysts measuring up to 4.4 cm in diameter. Smaller cysts or follicles noted in the left ovary. No follow-up imaging is recommended. Reference: J Am Des Radiol 2013;10:675-[address] 06/19/19 04:13 IMPRESSION: 1. Findings most compatible with sigmoid diverticulitis. No associated abscess. Underlying colonic malignancy cannot be completely excluded, and followup should be performed as indicated. 2. Masslike enlargement of the left lobe of the thyroid. Associated mild effect on the trachea which is slightly deviated to the right and minimally narrowed at this level. Recommend thyroid US. Reference: J Am Des Radiol. 2014;12(2): 143-50 3. Right ovarian cysts measuring up to 4.4 cm in diameter. Smaller cysts or follicles noted in the left ovary. No follow-up imaging is recommended. Reference: J Am Des Radiol 2013;10:675-681 Status: Image reviewed by me Assessment & Plan - Diagnosis (1) Iron deficiency anemia Qualifiers: Iron deficiency anemia type: unspecified iron deficiency Qualified Code(s): D50.9 - Iron deficiency anemia, unspecified Is this a current diagnosis for this admission?: Yes Plan: She has been started on oral iron. I will increase dose to 325 mg BID. This should continue for about 6 weeks and I will repeat levels in the office, and further follow-up at that time. (2) Diverticulitis Is this a current diagnosis for this admission?: Yes Plan: On appropriate antibiotics. Consider colonoscopy as outpatient in the near future, with iron deficiency anemia and abnormal CT, should rule out cancer as well. (3) Thyroid mass of unclear etiology Is this a current diagnosis for this admission?: Yes Plan: Agree with plans for U/S guided biopsy. She should follow-up with endocrinology as outpatient for this. I don't believe we have an electric mule operator who is here at [facility]. I will help arrange this as outpatient if needed. - Plan Summary Plan Summary: Thank you for this consultation. I will continue to follow her with you.
[2019-06-20] MEDS: DOCUSATE SODIUM 100 MG/10 ML UDC PO SCH (09:05)
[2019-06-20] MEDS: FAMOTIDINE 20 MG TABLET PO SCH ×2 (09:06→21:31)
[2019-06-20] MEDS: PROMETHAZINE HCL 25 MG TABLET PO PRN (09:06)
[2019-06-20] MEDS: SUCRALFATE 1 GM TABLET PO SCH ×4 (09:06→21:31)
[2019-06-20] MEDS: ENOXAPARIN SODIUM INJ 40 MG/0.4 ML DISP.SYRIN SUBCUT SCH (09:07)
[2019-06-20] MEDS: CEFTRIAXONE 2 GM/D5W RTU 2 GM/50 ML RTUPB IV SCH (09:07)
[2019-06-20] MEDS: FERROUS SULFATE 325 MG TABLET PO SCH ×2 (09:11→17:27)
[2019-06-20] MEDS: SIMETHICONE 80 MG TAB.CHEW PO SCH (09:11)
[2019-06-20 11:03] LABS: INTERNATIONAL RATION (INR) 1.13; PROTHROMBIN TIME 14.6 SEC (11.4-15.4)
--- NOTE | 2019-06-20 12:08 | PDOC PROGRESS REPORT ---
Subjective Progress Note for:: 06/20/19 Subjective:: CRUZITO PANDYA is a 43 year old female with no significant past medical history except for endometriosis status post surgery 2 years ago, presenting to ED complaining of left lower quadrant abdominal pain x1 day. Pain is constant, sharp, 5/5, nonradiating, worse with sitting and movement, no alleviating factor. She denies any fever, chills, nausea, vomiting, diarrhea, constipation or any urinary symptoms, she is p.o. tolerant. In ED CT of abdomen showed compatible with sigmoid diverticulitis. 06/20/2019. No acute events overnight. Still complaining of left lower quadrant abdominal pain improved compared to yesterday, denies any fever, chills, nausea, vomiting, diarrhea, constipation or any urinary symptoms. Scheduled for thyroid ultrasound and biopsy. Reason For Visit: DIVERTICULITIS Physical Exam Vital Signs: Temp Pulse Resp BP Pulse Ox 97.8 F 57 L 18 95/50 L 93 06/20/19 00:04 06/20/19 00:04 06/20/19 00:04 06/20/19 00:04 06/20/19 00:04 Intake & Output 06/19/19 06/20/19 06/21/19 06:59 06:59 06:59 Intake Total 3520 Balance 3520 Weight 110 kg 111.6 kg General appearance: PRESENT: no acute distress, well-developed, well-nourished Head exam: PRESENT: atraumatic, normocephalic Ear exam: PRESENT: normal external ear exam Neck exam: PRESENT: thyromegaly - Left-sided. Respiratory exam: PRESENT: clear to auscultation jessica. ABSENT: rales, rhonchi, wheezes Cardiovascular exam: PRESENT: RRR. ABSENT: diastolic murmur, rubs, systolic murmur GI/Abdominal exam: PRESENT: guarding, normal bowel sounds, soft, tenderness - Left lower quadrant.. ABSENT: distended, mass, organolmegaly, rebound Neurological exam: PRESENT: alert, awake, oriented to person, oriented to place, oriented to time, oriented to situation, CN II-XII grossly intact. ABSENT: motor sensory deficit Results Laboratory Results: 06/20/19 04:12 06/20/19 04:12 06/20/19 06/20/19 04:12 04:12 WBC 6.1 RBC 3.61 L Hgb 7.4 L Hct 23.6 L MCV 65 L MCH 20.4 L MCHC 31.3 L RDW 19.0 H Plt Count 352 Sodium 139.5 Potassium 3.3 L Chloride 107 Carbon Dioxide 27 Anion Gap 6 BUN 7 Creatinine 0.59 Est GFR ( Amer) > 60 Glucose 73 L Calcium 7.6 L Magnesium 2.2 Triglycerides 37 Cholesterol 123.03 LDL Cholesterol Direct 82 VLDL Cholesterol 7.0 L HDL Cholesterol 36 L Impressions: Chest X-Ray 06/18/19 21:58 IMPRESSION: No acute disease within the chest. Deviation of the trachea towards the right. A space-occupying paratracheal mass is a possibility, to include lymphadenopathy or thyromegaly. Correlation with CT of the chest is recommended for further assessment. copyright 2010 [employer]- All Rights Reserved Abdomen/Pelvis CT 06/19/19 04:12 IMPRESSION: 1. Findings most compatible with sigmoid diverticulitis. No associated abscess. Underlying colonic malignancy cannot be completely excluded, and followup should be performed as indicated. 2. Masslike enlargement of the left lobe of the thyroid. Associated mild effect on the trachea which is slightly deviated to the right and minimally narrowed at this level. Recommend thyroid US. Reference: J Am Des Radiol. 2014;12(2): 143-50 3. Right ovarian cysts measuring up to 4.4 cm in diameter. Smaller cysts or follicles noted in the left ovary. No follow-up imaging is recommended. Reference: J Am Des Radiol 2013;10:675-[address] 06/19/19 04:13 IMPRESSION: 1. Findings most compatible with sigmoid diverticulitis. No associated abscess. Underlying colonic malignancy cannot be completely excluded, and followup should be performed as indicated. 2. Masslike enlargement of the left lobe of the thyroid. Associated mild effect on the trachea which is slightly deviated to the right and minimally narrowed at this level. Recommend thyroid US. Reference: J Am Des Radiol. 2014;12(2): 143-50 3. Right ovarian cysts measuring up to 4.4 cm in diameter. Smaller cysts or follicles noted in the left ovary. No follow-up imaging is recommended. Reference: J Am Des Radiol 2013;10:675-681 Assessment and Plan - Diagnosis (1) Diverticulitis Is this a current diagnosis for this admission?: Yes Plan: Improving. Acute sigmoid diverticulitis. No significant leukocytosis or fever. Day 2 IV metronidazole and ceftriaxone. Supportive measures. Follow-up cultures. (2) Obesity (BMI 30-39.9) Is this a current diagnosis for this admission?: Yes Plan: BMI 39.1. TSH T4 T3 WNL. On diet lifestyle modification recommended. (3) Thyroid mass of unclear etiology Is this a current diagnosis for this admission?: Yes Plan: Incidental thyroid mass on CT neck. TSH T3-T4 WNL. Nontender. Scheduled for thyroid ultrasound with possible FNA today. Consult oncology. (4) Iron deficiency anemia Qualifiers: Iron deficiency anemia type: chronic blood loss Qualified Code(s): D50.0 - Iron deficiency anemia secondary to blood loss (chronic) Is this a current diagnosis for this admission?: Yes Plan: Stating that she has been anemic for a while and why she takes iron supplementation. Currently on her menstruation. Denies any history of heavy menstrual bleeds, denies any nosebleeds, hematemesis, hemoptysis, easy bleeding, hematochezia or melena. We will start on ferrous sulfate supplemental. Pending guaiac stool. Hematology on board. Outpatient follow-up recommended.
[2019-06-20] MEDS ORDERED: POTASSIUM CHLORIDE 10 MEQ TABLET.ER PO ONE (13:00)
--- NOTE | 2019-06-20 15:31 | RADIOLOGY REPORT (SQ) ---
EXAM DESCRIPTION: U/S BIOPSY THYROID COMPLETED DATE/TIME: 06/20/2019 1:37 pm REASON FOR STUDY: thyroid mass, CT finding COMPARISON: CT of the neck with contrast from 06/19/2019. TECHNIQUE: The procedure, risks, benefits, and alternatives were discussed with the patient in the p reprocedural area, and all questions were answered. Informed consent was obtained verbally and in wri ting. The patient was then brought to the procedural suite, positioned supine on a gurney, and a time-out w as performed. Selected grayscale and color Doppler images of the heterogeneous mass in the left lobe of the thyroid gland were then obtained ; based review of these images an appropriate percutaneous access site was selected. The area around the selected access site was subsequently prepped and draped with 2% chlorh exidine utilizing standard sterile technique. Then, after the access site was anesthetized with 1% li docaine, a 25 gauge needle was advanced into the lesion of interest utilizing sonographic guidance; a fter each pass the sample was submitted to cytopathology for review and in total 3 passes were perfor med. The patient tolerated the procedure well with local anesthesia. At the end of the procedure the patient's condition was unchanged from the preprocedural baseline. Documentation of [id number] time the proceduralist spent monitoring the patient: 25 minutes. LIMITATIONS: None. FINDINGS: PATHOLOGY: Pending. IMPRESSION: Successful fine-needle aspiration of the heterogeneous mass in the left lobe of the thyr oid gland. COMMENT: Patient medication list reviewed: Yes- Quality ID# [id number]:Eligible professional attests to doc umenting in the medical record they obtained, updated, or reviewed the patient's current medications. TECHNICAL DOCUMENTATION: JOB ID: [id number] 2010 [employer]- All Rights Reserved Reading location - IP/workstation name: [email or web address]
[2019-06-21] MEDS: METRONIDAZOLE 500 MG/NS RTU 500 MG/100 ML RTUPB IV SCH ×4 (05:30→23:24)
[2019-06-21] MEDS: OXYCODONE-ACETAMINOPHEN 5-325 MG TABLET PO PRN ×4 (05:36→23:25)
[2019-06-21] MEDS: ONDANSETRON HCL INJ/PF 4 MG/2 ML SDV IV PRN ×4 (05:36→23:25)
[2019-06-21 06:12] LABS: HEMATOCRIT 22.3 % (36.0-47.0); MEAN CORPUSCULAR HEMOGLOBIN 20.7 pg (27.0-33.4); MEAN CORPUSCULAR HGB CONC 32.2 g/dL (32.0-36.0); MEAN CORPUSCULAR VOLUME 64 fl (80-97); PLATELET COUNT 360 10^3/uL (150-450); RED BLOOD COUNT 3.47 10^6/uL (3.72-5.28); RED CELL DISTRIBUTION WIDTH 18.4 % (11.5-14.0); WHITE BLOOD COUNT 5.4 10^3/uL (4.0-10.5)
[2019-06-21 06:14] LABS: HEMOGLOBIN 7.2 g/dL (12.0-15.5)
[2019-06-21] MEDS: FERROUS SULFATE 325 MG TABLET PO SCH ×2 (09:26→17:22)
[2019-06-21] MEDS: SIMETHICONE 80 MG TAB.CHEW PO SCH (09:26)
[2019-06-21] MEDS: CEFTRIAXONE 2 GM/D5W RTU 2 GM/50 ML RTUPB IV SCH (09:26)
[2019-06-21] MEDS: FAMOTIDINE 20 MG TABLET PO SCH ×2 (09:26→21:11)
[2019-06-21] MEDS: DOCUSATE SODIUM 100 MG CAPSULE PO SCH (09:26)
[2019-06-21] MEDS: SUCRALFATE 1 GM TABLET PO SCH ×4 (09:26→21:10)
[2019-06-21] MEDS: ENOXAPARIN SODIUM INJ 40 MG/0.4 ML DISP.SYRIN SUBCUT SCH (09:27)
--- NOTE | 2019-06-21 10:52 | PDOC PROGRESS REPORT ---
Subjective Progress Note for:: 06/21/19 Subjective:: CRUZITO PANDYA is a 43 year old female with no significant past medical history except for endometriosis status post surgery 2 years ago, presenting to ED complaining of left lower quadrant abdominal pain x1 day. Pain is constant, sharp, 5/5, nonradiating, worse with sitting and movement, no alleviating factor. She denies any fever, chills, nausea, vomiting, diarrhea, constipation or any urinary symptoms, she is p.o. tolerant. In ED CT of abdomen showed compatible with sigmoid diverticulitis. 06/20/2019. No acute events overnight. Still complaining of left lower quadrant abdominal pain improved compared to yesterday, denies any fever, chills, nausea, vomiting, diarrhea, constipation or any urinary symptoms. Scheduled for thyroid ultrasound and biopsy. 06/21/2019. No acute events overnight. Still complaining of left lower quadrant abdominal pain. Appetite improving. Has not had a bowel movement. Passing flatus. Reason For Visit: DIVERTICULITIS Physical Exam Vital Signs: Temp Pulse Resp BP Pulse Ox 98.3 F 64 18 110/56 L 96 06/20/19 19:36 06/20/19 19:36 06/20/19 19:36 06/20/19 19:36 06/20/19 19:36 Intake & Output 06/20/19 06/21/19 06/22/19 06:59 06:59 06:59 Intake Total 3520 2632 Balance 3520 2632 Weight 111.6 kg 111.6 kg General appearance: PRESENT: no acute distress, obese, well-developed, well- nourished Head exam: PRESENT: atraumatic, normocephalic Respiratory exam: PRESENT: clear to auscultation jessica. ABSENT: rales, rhonchi, wheezes Cardiovascular exam: PRESENT: RRR. ABSENT: diastolic murmur, rubs, systolic murmur GI/Abdominal exam: PRESENT: normal bowel sounds, soft, tenderness. ABSENT: distended, guarding, mass, organolmegaly, rebound Neurological exam: PRESENT: alert, awake, oriented to person, oriented to place, oriented to time, oriented to situation, CN II-XII grossly intact. ABSENT: motor sensory deficit Results Laboratory Results: 06/21/19 05:31 06/20/19 04:12 06/21/19 05:31 WBC 5.4 RBC 3.47 L Hgb 7.2 L Hct 22.3 L MCV 64 L MCH 20.7 L MCHC 32.2 RDW 18.4 H Plt Count 360 Impressions: Chest X-Ray 06/18/19 21:58 IMPRESSION: No acute disease within the chest. Deviation of the trachea towards the right. A space-occupying paratracheal mass is a possibility, to include lymphadenopathy or thyromegaly. Correlation with CT of the chest is recommended for further assessment. copyright 2010 [employer]- All Rights Reserved Abdomen/Pelvis CT 06/19/19 04:12 IMPRESSION: 1. Findings most compatible with sigmoid diverticulitis. No associated abscess. Underlying colonic malignancy cannot be completely excluded, and followup should be performed as indicated. 2. Masslike enlargement of the left lobe of the thyroid. Associated mild effect on the trachea which is slightly deviated to the right and minimally narrowed at this level. Recommend thyroid US. Reference: J Am Des Radiol. 2014;12(2): 143-50 3. Right ovarian cysts measuring up to 4.4 cm in diameter. Smaller cysts or follicles noted in the left ovary. No follow-up imaging is recommended. Reference: J Am Des Radiol 2013;10:675-[address] 06/19/19 04:13 IMPRESSION: 1. Findings most compatible with sigmoid diverticulitis. No associated abscess. Underlying colonic malignancy cannot be completely excluded, and followup should be performed as indicated. 2. Masslike enlargement of the left lobe of the thyroid. Associated mild effect on the trachea which is slightly deviated to the right and minimally narrowed at this level. Recommend thyroid US. Reference: J Am Des Radiol. 2014;12(2): 143-50 3. Right ovarian cysts measuring up to 4.4 cm in diameter. Smaller cysts or follicles noted in the left ovary. No follow-up imaging is recommended. Reference: J Am Des Radiol 2013;10:675-681 Thyroid Biopsy Ultrasound 06/20/19 00:00 IMPRESSION: Successful fine-needle aspiration of the heterogeneous mass in the left lobe of the thyroid gland. Assessment and Plan - Diagnosis (1) Diverticulitis Is this a current diagnosis for this admission?: Yes Plan: Improving. Acute sigmoid diverticulitis. No significant leukocytosis or fever. Day 3 IV metronidazole and ceftriaxone. Supportive measures. Follow-up cultures. (2) Obesity (BMI 30-39.9) Is this a current diagnosis for this admission?: Yes Plan: BMI 39.1. TSH T4 T3 WNL. On diet lifestyle modification recommended. (3) Thyroid mass of unclear etiology Is this a current diagnosis for this admission?: Yes Plan: Incidental thyroid mass on CT neck. TSH T3-T4 WNL. Nontender. Status post ultrasound-guided thyroid FNA 06/21/2019. (4) Iron deficiency anemia Qualifiers: Iron deficiency anemia type: chronic blood loss Qualified Code(s): D50.0 - Iron deficiency anemia secondary to blood loss (chronic) Is this a current diagnosis for this admission?: Yes Plan: Stating that she has been anemic for a while and why she takes iron supplementation. Currently on her menstruation. Denies any history of heavy menstrual bleeds, denies any nosebleeds, hematemesis, hemoptysis, easy bleeding, hematochezia or melena. We will start on ferrous sulfate supplemental. Pending guaiac stool. Hematology on board. Outpatient follow-up recommended.
[2019-06-21] MEDS: NORMAL SALINE 1000 ML 1,000 ML IV PRN (17:22)
[2019-06-22] MEDS: OXYCODONE-ACETAMINOPHEN 5-325 MG TABLET PO PRN ×3 (03:39→18:38)
[2019-06-22] MEDS: ONDANSETRON HCL INJ/PF 4 MG/2 ML SDV IV PRN ×5 (03:39→23:53)
[2019-06-22] MEDS: METRONIDAZOLE 500 MG/NS RTU 500 MG/100 ML RTUPB IV SCH ×4 (05:00→23:53)
[2019-06-22 06:10] LABS: ABSOLUTE BASOPHILS # (AUTO) 0.1 10^3/uL (0.0-0.2); ABSOLUTE EOSINOPHILS # (AUTO) 0.2 10^3/uL (0.0-0.6); ABSOLUTE LYMPHOCYTES (AUTO) 1.6 10^3/uL (0.5-4.7); ABSOLUTE MONOCYTES (AUTO) 0.4 10^3/uL (0.1-1.4); ABSOLUTE NEUT (AUTO) 3.2 10^3/uL (1.7-8.2); BASOPHILS % (AUTO) 1.3 % (0-2); EOSINOPHILS % (AUTO) 3.1 % (0-6); HEMATOCRIT 22.3 % (36.0-47.0); MEAN CORPUSCULAR HEMOGLOBIN 20.5 pg (27.0-33.4); MEAN CORPUSCULAR HGB CONC 31.7 g/dL (32.0-36.0); MEAN CORPUSCULAR VOLUME 65 fl (80-97); MONOCYTES % (AUTO) 7.9 % (3-13); PLATELET COUNT 335 10^3/uL (150-450); RED BLOOD COUNT 3.44 10^6/uL (3.72-5.28); SEGMENTED NEUTROPHILS % (AUTO) 58.7 % (42-78); TOTAL CELLS COUNTED % (AUTO) 100 %; WHITE BLOOD COUNT 5.4 10^3/uL (4.0-10.5)
[2019-06-22 06:19] LABS: HEMOGLOBIN 7.1 g/dL (12.0-15.5)
[2019-06-22 06:31] LABS: ALBUMIN 2.7 g/dL (3.5-5.0); ALKALINE PHOSPHATASE 147 U/L (38-126); ANION GAP 7 (5-19); ASPARTATE AMINO TRANSFERASE 63 U/L (14-36); BILIRUBIN,DIRECT 0.3 mg/dL (0.0-0.4); BILIRUBIN,TOTAL 0.3 mg/dL (0.2-1.3); BLOOD UREA NITROGEN 8 mg/dL (7-20); CARBON DIOXIDE 26 mmol/L (22-30); CHLORIDE 107 mmol/L (98-107); GLUCOSE 79 mg/dL (75-110); POTASSIUM 3.9 mmol/L (3.6-5.0); TOTAL PROTEIN 5.6 g/dL (6.3-8.2)
[2019-06-22 06:36] LABS: HYPOCHROMASIA 2+; POLYCHROMASIA 1+
[2019-06-22 06:37] LABS: ANISOCYTOSIS 2+; OVALOCYTES 1+; PLATELET COMMENT ADEQUATE; POIKILOCYTOSIS 1+; TARGET CELLS 1+
[2019-06-22] MEDS: DOCUSATE SODIUM 100 MG CAPSULE PO SCH ×2 (10:00→18:38)
[2019-06-22] MEDS: FAMOTIDINE 20 MG TABLET PO SCH ×2 (10:00→21:13)
[2019-06-22] MEDS: SUCRALFATE 1 GM TABLET PO SCH ×4 (10:01→21:13)
[2019-06-22] MEDS: FERROUS SULFATE 325 MG TABLET PO SCH ×2 (10:01→18:38)
[2019-06-22] MEDS: CEFTRIAXONE 2 GM/D5W RTU 2 GM/50 ML RTUPB IV SCH (10:01)
[2019-06-22] MEDS: SIMETHICONE 80 MG TAB.CHEW PO SCH (10:01)
[2019-06-22] MEDS: ENOXAPARIN SODIUM INJ 40 MG/0.4 ML DISP.SYRIN SUBCUT SCH (10:02)
--- NOTE | 2019-06-22 11:21 | PDOC PROGRESS REPORT ---
Subjective Progress Note for:: 06/22/19 Subjective:: CRUZITO PANDYA is a 43 year old female with no significant past medical history except for endometriosis status post surgery 2 years ago, presenting to ED complaining of left lower quadrant abdominal pain x1 day. Pain is constant, sharp, 5/5, nonradiating, worse with sitting and movement, no alleviating factor. She denies any fever, chills, nausea, vomiting, diarrhea, constipation or any urinary symptoms, she is p.o. tolerant. In ED CT of abdomen showed compatible with sigmoid diverticulitis. 06/20/2019. No acute events overnight. Still complaining of left lower quadrant abdominal pain improved compared to yesterday, denies any fever, chills, nausea, vomiting, diarrhea, constipation or any urinary symptoms. Scheduled for thyroid ultrasound and biopsy. 06/21/2019. No acute events overnight. Still complaining of left lower quadrant abdominal pain. Appetite improving. Has not had a bowel movement. Passing flatus. 06/22/2019. No acute events overnight. Patient still complaining of persistent left lower quadrant abdominal pain, has not had a bowel movement, however passing flatus and is p.o. tolerant, denies any fever, chills, nausea, vomiting. Reason For Visit: DIVERTICULITIS Physical Exam Vital Signs: Temp Pulse Resp BP Pulse Ox 98.2 F 52 L 17 118/61 97 06/22/19 10:50 06/22/19 10:50 06/22/19 10:50 06/22/19 10:50 06/22/19 10:50 Intake & Output 06/21/19 06/22/19 06/23/19 06:59 06:59 06:59 Intake Total 2632 3797 Balance 2632 3797 Weight 111.6 kg 112 kg General appearance: PRESENT: morbidly obese Head exam: PRESENT: atraumatic, normocephalic Respiratory exam: PRESENT: clear to auscultation jessica. ABSENT: rales, rhonchi, wheezes Cardiovascular exam: PRESENT: RRR. ABSENT: diastolic murmur, rubs, systolic murmur GI/Abdominal exam: PRESENT: normal bowel sounds, soft, tenderness - LLQ. ABSENT: distended, guarding, mass, organolmegaly, rebound Neurological exam: PRESENT: alert, awake, oriented to person, oriented to place, oriented to time, oriented to situation, CN II-XII grossly intact. ABSENT: motor sensory deficit Results Laboratory Results: 06/22/19 05:48 06/22/19 05:48 06/22/19 06/22/19 05:48 05:48 WBC 5.4 RBC 3.44 L Hgb 7.1 L Hct 22.3 L MCV 65 L MCH 20.5 L MCHC 31.7 L RDW 19.0 H Plt Count 335 Seg Neutrophils % 58.7 Sodium 140.2 Potassium 3.9 Chloride 107 Carbon Dioxide 26 Anion Gap 7 BUN 8 Creatinine 0.52 Est GFR ( Amer) > 60 Glucose 79 Calcium 8.0 L Total Bilirubin 0.3 AST 63 H Alkaline Phosphatase 147 H Total Protein 5.6 L Albumin 2.7 L Impressions: Chest X-Ray 06/18/19 21:58 IMPRESSION: No acute disease within the chest. Deviation of the trachea towards the right. A space-occupying paratracheal mass is a possibility, to include lymphadenopathy or thyromegaly. Correlation with CT of the chest is recommended for further assessment. copyright 2011 [employer]- All Rights Reserved Abdomen/Pelvis CT 06/19/19 04:12 IMPRESSION: 1. Findings most compatible with sigmoid diverticulitis. No associated abscess. Underlying colonic malignancy cannot be completely excluded, and followup should be performed as indicated. 2. Masslike enlargement of the left lobe of the thyroid. Associated mild effect on the trachea which is slightly deviated to the right and minimally narrowed at this level. Recommend thyroid US. Reference: J Am Des Radiol. 2014;12(2): 143-50 3. Right ovarian cysts measuring up to 4.4 cm in diameter. Smaller cysts or follicles noted in the left ovary. No follow-up imaging is recommended. Reference: J Am Des Radiol 2013;10:675-[address] 06/19/19 04:13 IMPRESSION: 1. Findings most compatible with sigmoid diverticulitis. No associated abscess. Underlying colonic malignancy cannot be completely excluded, and followup should be performed as indicated. 2. Masslike enlargement of the left lobe of the thyroid. Associated mild effect on the trachea which is slightly deviated to the right and minimally narrowed at this level. Recommend thyroid US. Reference: J Am Des Radiol. 2014;12(2): 143-50 3. Right ovarian cysts measuring up to 4.4 cm in diameter. Smaller cysts or follicles noted in the left ovary. No follow-up imaging is recommended. Reference: J Am Des Radiol 2013;10:675-681 Thyroid Biopsy Ultrasound 06/20/19 00:00 IMPRESSION: Successful fine-needle aspiration of the heterogeneous mass in the left lobe of the thyroid gland. Assessment and Plan - Diagnosis (1) Diverticulitis Is this a current diagnosis for this admission?: Yes Plan: Improving. Passing flatus. Has not had a bowel movement. Acute sigmoid diverticulitis. No significant leukocytosis or fever. Day 4 IV antibiotics. Day 4 IV metronidazole. Day 1 IV levofloxacin. Received 3 days of IV ceftriaxone. DC IV ceftriaxone as patient LFTs are doing up. Supportive measures. Follow-up cultures. (2) Obesity (BMI 30-39.9) Is this a current diagnosis for this admission?: Yes Plan: BMI 39.1. TSH T4 T3 WNL. On diet lifestyle modification recommended. (3) Thyroid mass of unclear etiology Is this a current diagnosis for this admission?: Yes Plan: Incidental thyroid mass on CT neck. TSH T3-T4 WNL. Nontender. Status post ultrasound-guided thyroid FNA 06/21/2019. (4) Iron deficiency anemia Qualifiers: Iron deficiency anemia type: chronic blood loss Qualified Code(s): D50.0 - Iron deficiency anemia secondary to blood loss (chronic) Is this a current diagnosis for this admission?: Yes Plan: Stating that she has been anemic for a while and why she takes iron supplementation. Currently on her menstruation. Denies any history of heavy menstrual bleeds, denies any nosebleeds, hematemesis, hemoptysis, easy bleeding, hematochezia or melena. We will start on ferrous sulfate supplemental. Pending guaiac stool. Hematology on board. Outpatient follow-up recommended.
[2019-06-22] MEDS ORDERED: LEVOFLOXACIN 750 MG/D5W RTU 750 MG/150 ML RTUPB IV SCH (12:00)
[2019-06-22] MEDS: NORMAL SALINE 1000 ML 1,000 ML IV PRN (18:38)
[2019-06-23] MEDS: METRONIDAZOLE 500 MG/NS RTU 500 MG/100 ML RTUPB IV SCH ×3 (05:25→18:19)
[2019-06-23] MEDS: OXYCODONE-ACETAMINOPHEN 5-325 MG TABLET PO PRN ×4 (05:27→21:29)
[2019-06-23] MEDS: ONDANSETRON HCL INJ/PF 4 MG/2 ML SDV IV PRN (05:27)
[2019-06-23 06:00] LABS: ALBUMIN 2.7 g/dL (3.5-5.0); ALKALINE PHOSPHATASE 134 U/L (38-126); ANION GAP 5 (5-19); ASPARTATE AMINO TRANSFERASE 34 U/L (14-36); BILIRUBIN,TOTAL 0.3 mg/dL (0.2-1.3); BLOOD UREA NITROGEN 7 mg/dL (7-20); CALCIUM 8.1 mg/dL (8.4-10.2); CARBON DIOXIDE 25 mmol/L (22-30); CHLORIDE 109 mmol/L (98-107); POTASSIUM 4.1 mmol/L (3.6-5.0); TOTAL PROTEIN 5.4 g/dL (6.3-8.2)
[2019-06-23 06:11] LABS: GLUCOSE 68 mg/dL (75-110)
[2019-06-23] MEDS: SUCRALFATE 1 GM TABLET PO SCH ×4 (08:00→21:27)
[2019-06-23] MEDS: FAMOTIDINE 20 MG TABLET PO SCH ×2 (10:18→21:27)
[2019-06-23] MEDS: FERROUS SULFATE 325 MG TABLET PO SCH ×2 (10:18→18:18)
[2019-06-23] MEDS: DOCUSATE SODIUM 100 MG CAPSULE PO SCH ×2 (10:18→18:18)
[2019-06-23] MEDS: ENOXAPARIN SODIUM INJ 40 MG/0.4 ML DISP.SYRIN SUBCUT SCH (10:19)
[2019-06-23] MEDS: SIMETHICONE 80 MG TAB.CHEW PO SCH (10:21)
[2019-06-23] MEDS: PROMETHAZINE HCL 25 MG TABLET PO PRN ×3 (10:21→21:27)
--- NOTE | 2019-06-23 11:16 | PDOC PROGRESS REPORT ---
Subjective Progress Note for:: 06/23/19 Subjective:: CRUZITO PANDYA is a 43 year old female with no significant past medical history except for endometriosis status post surgery 2 years ago, presenting to ED complaining of left lower quadrant abdominal pain x1 day. Pain is constant, sharp, 5/5, nonradiating, worse with sitting and movement, no alleviating factor. She denies any fever, chills, nausea, vomiting, diarrhea, constipation or any urinary symptoms, she is p.o. tolerant. In ED CT of abdomen showed compatible with sigmoid diverticulitis. 06/20/2019. No acute events overnight. Still complaining of left lower quadrant abdominal pain improved compared to yesterday, denies any fever, chills, nausea, vomiting, diarrhea, constipation or any urinary symptoms. Scheduled for thyroid ultrasound and biopsy. 06/21/2019. No acute events overnight. Still complaining of left lower quadrant abdominal pain. Appetite improving. Has not had a bowel movement. Passing flatus. 06/22/2019. No acute events overnight. Patient still complaining of persistent left lower quadrant abdominal pain, has not had a bowel movement, however passing flatus and is p.o. tolerant, denies any fever, chills, nausea, vomiting. 06/23/2019. Overnight patient was complaining of persistent nausea and vomiting and this morning stating that left lower abdominal pain has not changed much, he did have 1 loose bowel movement, denies any fever, chills, chest pain, shortness of breath or any urinary symptoms. Patient is stating that her nausea and vomiting started once her antibiotics were switched to levofloxacin. Once p.o. tolerant having bowel movement patient can be discharged home at home. Reason For Visit: DIVERTICULITIS Physical Exam Vital Signs: Temp Pulse Resp BP Pulse Ox 97.6 F 57 L 16 135/69 H 98 06/23/19 10:51 06/23/19 10:51 06/23/19 10:51 06/23/19 10:51 06/23/19 10:51 Intake & Output 06/22/19 06/23/19 06/24/19 06:59 06:59 06:59 Intake Total 4797 2052 120 Output Total 500 Balance 4797 1552 120 Weight 112 kg 115.5 kg General appearance: PRESENT: morbidly obese Head exam: PRESENT: atraumatic, normocephalic Respiratory exam: PRESENT: clear to auscultation jessica. ABSENT: rales, rhonchi, wheezes Cardiovascular exam: PRESENT: RRR. ABSENT: diastolic murmur, rubs, systolic murmur GI/Abdominal exam: PRESENT: guarding, normal bowel sounds, tenderness - Left lower quadrant.. ABSENT: distended, mass, organolmegaly, rebound Neurological exam: PRESENT: alert, awake, oriented to person, oriented to place, oriented to time, oriented to situation, CN II-XII grossly intact. ABSENT: motor sensory deficit Results Laboratory Results: 06/22/19 05:48 06/23/19 05:07 06/22/19 06/23/19 16:39 05:07 Sodium 139.2 Potassium 4.1 Chloride 109 H Carbon Dioxide 25 Anion Gap 5 BUN 7 Creatinine 0.58 Est GFR ( Amer) > 60 Glucose 68 L Calcium 8.1 L Total Bilirubin 0.3 AST 34 Alkaline Phosphatase 134 H Total Protein 5.4 L Albumin 2.7 L Stool Occult Blood NEGATIVE Impressions: Chest X-Ray 06/18/19 21:58 IMPRESSION: No acute disease within the chest. Deviation of the trachea towards the right. A space-occupying paratracheal mass is a possibility, to include lymphadenopathy or thyromegaly. Correlation with CT of the chest is recommended for further assessment. copyright 2011 [employer]- All Rights Reserved Abdomen/Pelvis CT 06/19/19 04:12 IMPRESSION: 1. Findings most compatible with sigmoid diverticulitis. No associated abscess. Underlying colonic malignancy cannot be completely excluded, and followup should be performed as indicated. 2. Masslike enlargement of the left lobe of the thyroid. Associated mild effect on the trachea which is slightly deviated to the right and minimally narrowed at this level. Recommend thyroid US. Reference: J Am Des Radiol. 2015 b;12(2): 143-50 3. Right ovarian cysts measuring up to 4.4 cm in diameter. Smaller cysts or follicles noted in the left ovary. No follow-up imaging is recommended. Reference: J Am Des Radiol 2013;10:675-[address] 06/19/19 04:13 IMPRESSION: 1. Findings most compatible with sigmoid diverticulitis. No associated abscess. Underlying colonic malignancy cannot be completely excluded, and followup should be performed as indicated. 2. Masslike enlargement of the left lobe of the thyroid. Associated mild effect on the trachea which is slightly deviated to the right and minimally narrowed at this level. Recommend thyroid US. Reference: J Am Des Radiol. 2015 Jun;12(2): 143-50 3. Right ovarian cysts measuring up to 4.4 cm in diameter. Smaller cysts or follicles noted in the left ovary. No follow-up imaging is recommended. Reference: J Am Des Radiol 2013;10:675-681 Thyroid Biopsy Ultrasound 06/20/19 00:00 IMPRESSION: Successful fine-needle aspiration of the heterogeneous mass in the left lobe of the thyroid gland. Assessment and Plan - Diagnosis (1) Diverticulitis Is this a current diagnosis for this admission?: Yes Plan: Passing flatus. One loose bowel movement. Still complaining of persistent left lower quadrant abdominal pain. Nausea vomiting worsened once she was switched to levofloxacin. Acute sigmoid diverticulitis. No significant leukocytosis or fever. Day 5 IV antibiotics. Day 5 IV metronidazole. Received 3 days of IV ceftriaxone. DC IV ceftriaxone as patient LFTs are doing up. Received 1 day of IV levofloxacin. DC levofloxacin as it is causing her nausea and vomiting worse. Supportive measures. Follow-up cultures. (2) Obesity (BMI 30-39.9) Is this a current diagnosis for this admission?: Yes Plan: BMI 39.1. TSH T4 T3 WNL. On diet lifestyle modification recommended. (3) Thyroid mass of unclear etiology Is this a current diagnosis for this admission?: Yes Plan: Incidental thyroid mass on CT neck. TSH T3-T4 WNL. Nontender. Status post ultrasound-guided thyroid FNA 06/21/2019. (4) Iron deficiency anemia Qualifiers: Iron deficiency anemia type: chronic blood loss Qualified Code(s): D50.0 - Iron deficiency anemia secondary to blood loss (chronic) Is this a current diagnosis for this admission?: Yes Plan: Stating that she has been anemic for a while and why she takes iron supplementation. Currently on her menstruation. Denies any history of heavy menstrual bleeds, denies any nosebleeds, hematemesis, hemoptysis, easy bleeding, hematochezia or melena. We will start on ferrous sulfate supplemental. Pending guaiac stool. Hematology on board. Outpatient follow-up recommended. (5) Elevated liver enzymes Is this a current diagnosis for this admission?: Yes Plan: Likely due to ceftriaxone. Trending down. DC ceftriaxone. LFTs tomorrow.
[2019-06-23] MEDS: NORMAL SALINE 1000 ML 1,000 ML IV PRN (21:29)
[2019-06-24] MEDS: METRONIDAZOLE 500 MG/NS RTU 500 MG/100 ML RTUPB IV SCH ×4 (01:07→17:41)
[2019-06-24] MEDS: PROMETHAZINE HCL 25 MG TABLET PO PRN ×5 (01:18→22:03)
[2019-06-24] MEDS: OXYCODONE-ACETAMINOPHEN 5-325 MG TABLET PO PRN ×5 (01:20→22:04)
[2019-06-24 06:13] LABS: ABSOLUTE BASOPHILS # (AUTO) 0.1 10^3/uL (0.0-0.2); ABSOLUTE EOSINOPHILS # (AUTO) 0.1 10^3/uL (0.0-0.6); ABSOLUTE LYMPHOCYTES (AUTO) 1.5 10^3/uL (0.5-4.7); ABSOLUTE MONOCYTES (AUTO) 0.6 10^3/uL (0.1-1.4); ABSOLUTE NEUT (AUTO) 5.6 10^3/uL (1.7-8.2); BASOPHILS % (AUTO) 0.8 % (0-2); EOSINOPHILS % (AUTO) 1.8 % (0-6); HEMATOCRIT 24.7 % (36.0-47.0); LYMPHOCYTES % (AUTO) 18.7 % (13-45); MEAN CORPUSCULAR HEMOGLOBIN 20.7 pg (27.0-33.4); MEAN CORPUSCULAR HGB CONC 31.6 g/dL (32.0-36.0); MEAN CORPUSCULAR VOLUME 66 fl (80-97); MONOCYTES % (AUTO) 7.5 % (3-13); PLATELET COUNT 372 10^3/uL (150-450); RED BLOOD COUNT 3.76 10^6/uL (3.72-5.28); RED CELL DISTRIBUTION WIDTH 18.9 % (11.5-14.0); SEGMENTED NEUTROPHILS % (AUTO) 71.2 % (42-78); TOTAL CELLS COUNTED % (AUTO) 100 %; WHITE BLOOD COUNT 7.8 10^3/uL (4.0-10.5)
[2019-06-24 06:15] LABS: HEMOGLOBIN 7.8 g/dL (12.0-15.5)
[2019-06-24 06:38] LABS: ALBUMIN 2.8 g/dL (3.5-5.0); ALKALINE PHOSPHATASE 118 U/L (38-126); ANION GAP 11 (5-19); ASPARTATE AMINO TRANSFERASE 25 U/L (14-36); BILIRUBIN,DIRECT 0.3 mg/dL (0.0-0.4); BILIRUBIN,TOTAL 0.4 mg/dL (0.2-1.3); BLOOD UREA NITROGEN 7 mg/dL (7-20); CALCIUM 7.7 mg/dL (8.4-10.2); CARBON DIOXIDE 22 mmol/L (22-30); CHLORIDE 105 mmol/L (98-107); POTASSIUM 3.7 mmol/L (3.6-5.0); TOTAL PROTEIN 5.7 g/dL (6.3-8.2)
[2019-06-24 06:44] LABS: GLUCOSE 65 mg/dL (75-110)
--- NOTE | 2019-06-24 07:51 | PDOC PROGRESS REPORT ---
Subjective Progress Note for:: 06/24/19 Subjective:: Patient still complaining of abdominal pain and nausea. She believes the Levaquin has caused increased nausea. Today is better than yesterday. She states that her bowels are moving. But, overall, she has not significantly improved. ROS: No chest pain. No dyspnea. Reason For Visit: DIVERTICULITIS Physical Exam Vital Signs: Temp Pulse Resp BP Pulse Ox 97.9 F 69 20 136/74 H 98 06/24/19 05:00 06/24/19 05:00 06/24/19 05:00 06/24/19 05:00 06/24/19 05:00 Intake & Output 06/23/19 06/24/19 06/25/19 06:59 06:59 06:59 Intake Total 2 1810 Output Total 500 Balance 1552 1810 Weight 115.5 kg 115.1 kg General appearance: PRESENT: no acute distress, obese Head exam: PRESENT: normocephalic Eye exam: PRESENT: EOMI Respiratory exam: PRESENT: clear to auscultation jessica, unlabored Cardiovascular exam: PRESENT: RRR GI/Abdominal exam: PRESENT: hypoactive bowel sounds, soft, tenderness Extremities exam: ABSENT: pedal edema Neurological exam: PRESENT: alert, awake Psychiatric exam: PRESENT: appropriate affect Skin exam: PRESENT: normal color Results Laboratory Results: 06/24/19 05:56 06/24/19 05:56 06/24/19 06/24/19 05:56 05:56 WBC 7.8 RBC 3.76 Hgb 7.8 L Hct 24.7 L MCV 66 L MCH 20.7 L MCHC 31.6 L RDW 18.9 H Plt Count 372 Seg Neutrophils % 71.2 Sodium 137.9 Potassium 3.7 Chloride 105 Carbon Dioxide 22 Anion Gap 11 BUN 7 Creatinine 0.53 Est GFR ( Amer) > 60 Glucose 65 L Calcium 7.7 L Total Bilirubin 0.4 AST 25 Alkaline Phosphatase 118 Total Protein 5.7 L Albumin 2.8 L Impressions: Chest X-Ray 06/18/19 21:58 IMPRESSION: No acute disease within the chest. Deviation of the trachea towards the right. A space-occupying paratracheal mass is a possibility, to include lymphadenopathy or thyromegaly. Correlation with CT of the chest is recommended for further assessment. copyright 2010 [employer]- All Rights Reserved Abdomen/Pelvis CT 06/19/19 04:12 IMPRESSION: 1. Findings most compatible with sigmoid diverticulitis. No associated abscess. Underlying colonic malignancy cannot be completely excluded, and followup should be performed as indicated. 2. Masslike enlargement of the left lobe of the thyroid. Associated mild effect on the trachea which is slightly deviated to the right and minimally narrowed at this level. Recommend thyroid US. Reference: J Am Des Radiol. 2014;12(2): 143-50 3. Right ovarian cysts measuring up to 4.4 cm in diameter. Smaller cysts or follicles noted in the left ovary. No follow-up imaging is recommended. Reference: J Am Des Radiol 2013;10:675-[address] 06/19/19 04:13 IMPRESSION: 1. Findings most compatible with sigmoid diverticulitis. No associated abscess. Underlying colonic malignancy cannot be completely excluded, and followup should be performed as indicated. 2. Masslike enlargement of the left lobe of the thyroid. Associated mild effect on the trachea which is slightly deviated to the right and minimally narrowed at this level. Recommend thyroid US. Reference: J Am Des Radiol. 2014;12(2): 143-50 3. Right ovarian cysts measuring up to 4.4 cm in diameter. Smaller cysts or follicles noted in the left ovary. No follow-up imaging is recommended. Reference: J Am Des Radiol 2013;10:675-681 Thyroid Biopsy Ultrasound 06/20/19 00:00 IMPRESSION: Successful fine-needle aspiration of the heterogeneous mass in the left lobe of the thyroid gland. Assessment & Plan - Diagnosis (1) Iron deficiency anemia Qualifiers: Iron deficiency anemia type: chronic blood loss Qualified Code(s): D50.0 - Iron deficiency anemia secondary to blood loss (chronic) Is this a current diagnosis for this admission?: Yes Plan: She would greatly benefit from EGD and Colonoscopy in the near future. Although current symptoms are believed to be from diverticulitis, other possibilities include gastric/duodenal ulcer or colon cancer. She will continue oral iron. I will repeat iron studies in about 6 weeks as outpatient. Her HGB is slowly improving. (2) Diverticulitis Is this a current diagnosis for this admission?: Yes Plan: As above. (3) Thyroid mass of unclear etiology Is this a current diagnosis for this admission?: Yes Plan: Await path results after recent biopsy. These can be reviewed as outpatient if she is stable for discharge prior to results. - Time Time Spent with patient: 15-24 minutes
[2019-06-24] MEDS: SUCRALFATE 1 GM TABLET PO SCH ×4 (08:25→22:04)
--- NOTE | 2019-06-24 09:14 | PDOC PROGRESS REPORT ---
Subjective Progress Note for:: 06/24/19 Subjective:: Patient reports that the nausea is resolved. She still has significant pain. White blood cell count has been normal since June 20. She reports that the quinolones made her nauseous and caused her to vomit. Reason For Visit: DIVERTICULITIS Abdominal pain Physical Exam Vital Signs: Temp Pulse Resp BP Pulse Ox 97.7 F 56 L 16 131/80 H 97 06/24/19 07:12 06/24/19 07:12 06/24/19 07:12 06/24/19 07:12 06/24/19 07:12 Intake & Output 06/23/19 06/24/19 06/25/19 06:59 06:59 06:59 Intake Total 2051 1810 100 Output Total 500 Balance 1552 1810 100 Weight 115.5 kg 115.1 kg General appearance: PRESENT: cooperative, mild distress, morbidly obese, well- developed Head exam: PRESENT: atraumatic, normocephalic Ear exam: PRESENT: normal external ear exam. ABSENT: bleeding, drainage Neck exam: PRESENT: other - Mass left lobe thyroid Respiratory exam: PRESENT: clear to auscultation jessica - Anteriorly, symmetrical, unlabored. ABSENT: rales, rhonchi, tachypnea, wheezes Cardiovascular exam: PRESENT: RRR, +S1, +S2 GI/Abdominal exam: PRESENT: diminished bowel sounds, soft, tenderness - Winces to palpation globally but focused in the left lower quadrant. ABSENT: distended, guarding Rectal exam: PRESENT: deferred Neurological exam: PRESENT: alert, awake, oriented to person, oriented to place, oriented to situation, CN II-XII grossly intact Psychiatric exam: PRESENT: flat affect. ABSENT: agitated, anxious Focused psych exam: ABSENT: delusional, restlessness Skin exam: PRESENT: dry, pallor, warm. ABSENT: rash Results Laboratory Results: 06/24/19 05:56 06/24/19 05:56 06/24/19 06/24/19 05:56 05:56 WBC 7.8 RBC 3.76 Hgb 7.8 L Hct 24.7 L MCV 66 L MCH 20.7 L MCHC 31.6 L RDW 18.9 H Plt Count 372 Seg Neutrophils % 71.2 Sodium 137.9 Potassium 3.7 Chloride 105 Carbon Dioxide 22 Anion Gap 11 BUN 7 Creatinine 0.53 Est GFR ( Amer) > 60 Glucose 65 L Calcium 7.7 L Total Bilirubin 0.4 AST 25 Alkaline Phosphatase 118 Total Protein 5.7 L Albumin 2.8 L 06/19/19 08:40 Blood Blood Culture - Final NO GROWTH IN 5 DAYS Impressions: Chest X-Ray 06/18/19 21:58 IMPRESSION: No acute disease within the chest. Deviation of the trachea towards the right. A space-occupying paratracheal mass is a possibility, to include lymphadenopathy or thyromegaly. Correlation with CT of the chest is recommended for further assessment. copyright 2010 [employer]- All Rights Reserved Abdomen/Pelvis CT 06/19/19 04:12 IMPRESSION: 1. Findings most compatible with sigmoid diverticulitis. No associated abscess. Underlying colonic malignancy cannot be completely excluded, and followup should be performed as indicated. 2. Masslike enlargement of the left lobe of the thyroid. Associated mild effect on the trachea which is slightly deviated to the right and minimally narrowed at this level. Recommend thyroid US. Reference: J Am Des Radiol. 2014;12(2): 143-50 3. Right ovarian cysts measuring up to 4.4 cm in diameter. Smaller cysts or follicles noted in the left ovary. No follow-up imaging is recommended. Reference: J Am Des Radiol 2013;10:675-[address] 06/19/19 04:13 IMPRESSION: 1. Findings most compatible with sigmoid diverticulitis. No associated abscess. Underlying colonic malignancy cannot be completely excluded, and followup should be performed as indicated. 2. Masslike enlargement of the left lobe of the thyroid. Associated mild effect on the trachea which is slightly deviated to the right and minimally narrowed at this level. Recommend thyroid US. Reference: J Am Des Radiol. 2014;12(2): 143-50 3. Right ovarian cysts measuring up to 4.4 cm in diameter. Smaller cysts or follicles noted in the left ovary. No follow-up imaging is recommended. Reference: J Am Des Radiol 2013;10:675-681 Thyroid Biopsy Ultrasound 06/20/19 00:00 IMPRESSION: Successful fine-needle aspiration of the heterogeneous mass in the left lobe of the thyroid gland. Assessment and Plan - Diagnosis (1) Diverticulitis Is this a current diagnosis for this admission?: Yes Plan: Passing flatus. One loose bowel movement. Still complaining of persistent left lower quadrant abdominal pain. Nausea vomiting worsened once she was switched to levofloxacin. Acute sigmoid diverticulitis. No significant leukocytosis or fever. Day 5 IV antibiotics. Day 5 IV metronidazole. Received 3 days of IV ceftriaxone. DC IV ceftriaxone as patient LFTs are doing up. Received 1 day of IV levofloxacin. DC levofloxacin as it is causing her nausea and vomiting worse. Supportive measures. Follow-up cultures. 06/24/2019-the patient's white blood cell count is better but her abdominal pain is no better and although focused on the left lower quadrant it is still somewhat diffuse. I have ordered a GI consult. Colonoscopy with acute infection is not generally done. I have added back a second antibiotic. She threw up with the quinolones. Her LFTs were increasing with Rocephin and so I have added Zosyn. I will repeat a CT scan of the abdomen to assess for improvement. (2) Abdominal pain, left lower quadrant Is this a current diagnosis for this admission?: Yes Plan: 06/24/2019-still with bad pain. Patient reports not improved since the time of admission. This is despite antibiotic therapy. Will repeat CT scan of the abdomen and pelvis. (3) Iron deficiency anemia Qualifiers: Iron deficiency anemia type: chronic blood loss Qualified Code(s): D50.0 - Iron deficiency anemia secondary to blood loss (chronic) Is this a current diagnosis for this admission?: Yes Plan: 06/24/2019-please also see hematology oncology note. Hemoglobin is slowly improving. The patient is on ferrous sulfate twice a day. Continue to monitor hemoglobin and follow-up with hematology as an outpatient. (4) Elevated liver enzymes Is this a current diagnosis for this admission?: Yes Plan: Likely due to ceftriaxone. Trending down. DC ceftriaxone. LFTs tomorrow. 06/24/2019-transaminases are improved. It was felt that these were secondary to the ceftriaxone which was discontinued. Will avoid cephalosporins. (5) Thyroid mass of unclear etiology Is this a current diagnosis for this admission?: Yes Plan: 06/24/2019-the patient did have fine-needle aspiration of the mass in the left lobe of the thyroid. 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 I will discuss with oncology. The patient will likely require partial thyroidectomy. (7) Nausea and vomiting Qualifiers: Vomiting type: unspecified Vomiting Intractability: non-intractable Qualified Code(s): R11.2 - Nausea with vomiting, unspecified Is this a current diagnosis for this admission?: Yes Plan: 06/24/2019-nausea vomiting appear to be related to the quinolone therapy. The quinolones were discontinued. We will avoid quinolones during this admission. (8) Morbid obesity with BMI of 40.0-44.9, adult Is this a current diagnosis for this admission?: Yes Plan: BMI is 41.0. We will try to encourage good dietary habits with a goal of weight loss. - Time Time Spent with patient: 15-24 minutes Medications reviewed and adjusted accordingly: Yes
[2019-06-24] MEDS ORDERED: CEFTRIAXONE 2 GM/D5W RTU 2 GM/50 ML RTUPB IV SCH (10:00)
[2019-06-24] MEDS: FERROUS SULFATE 325 MG TABLET PO SCH ×2 (10:37→17:41)
[2019-06-24] MEDS: DOCUSATE SODIUM 100 MG CAPSULE PO SCH ×2 (10:37→17:41)
[2019-06-24] MEDS: FAMOTIDINE 20 MG TABLET PO SCH ×2 (10:37→22:05)
[2019-06-24] MEDS: SIMETHICONE 80 MG TAB.CHEW PO SCH (10:38)
[2019-06-24] MEDS: ENOXAPARIN SODIUM INJ 40 MG/0.4 ML DISP.SYRIN SUBCUT SCH (10:39)
--- NOTE | 2019-06-24 11:00 | PDOC CONSULTATION ---
Consultation Consult Date: 06/24/19 Provider Consulted: YAZ LEE Consult reason:: Diverticulitis History of Present Illness Admission Date/PCP: 06/21/19 13:49 History of Present Illness: CRUZITO PANDYA is a 43 year old female asked to see patient for abnormal CT scan possible diverticulitis based on the CT scan GI consult requested cannot exclude other etiology , however colonoscopy is a contraindication with acute diverticulitis could recommend antibiotics will need outpatient colonoscopy in 6 weeks should be on Cipro and Flagyl has deviation of trachea to the right recent thyroid biopsy followed by oncology at this point will need conservative measures inpatient colonoscopy is contraindicated for now Past Medical History Endocrine Medical History: Denies: Diabetes Mellitus Type 1, Diabetes Mellitus Type 2 Renal/ Medical History: Reports: Other - endometriosis with ovarian cysts. Hematology: Denies: Anemia Past Surgical History Past Surgical History: Reports: Cholecystectomy, Other - Endometrial biopsy Social History Lives with: Family Smoking Status: Current Every Day Smoker Electronic Cigarette use?: No Number of Years Smokin Frequency of Alcohol Use: Rare Hx Recreational Drug Use: No Hx Prescription Drug Abuse: No Family History Family History: Reviewed & Not Pertinent Parental Family History Reviewed: Yes Children Family History Reviewed: Unknown Sibling(s) Family History Reviewed.: Unknown Medication/Allergy Home Medications: Ferrous Sulfate [Feosol 325 mg Tablet] 325 mg PO DAILY #30 tab 10/20/18 Sucralfate [Carafate 1 gm Tablet] 1 gm PO ACHS #120 tablet 10/20/18 Aspirin/Caffeine [Bc Powder Packet] 1 packet PO BID 06/19/19 Hydrocodone/Acetaminophen [[place] 5-325 mg Tablet] 1 tab PO Q8HP PRN 06/19/19 Simethicone [Gas-X Ultra Strength] 180 mg PO DAILY 06/19/19 Allergies/Adverse Reactions: No Known Allergies Allergy (Verified 06/18/19 21:53) Review of Systems Constitutional: ABSENT: fever(s), headache(s), night sweats Eyes: ABSENT: visual disturbances Ears: ABSENT: hearing changes Nose, Mouth, and Throat: ABSENT: mouth pain, sore throat Cardiovascular: ABSENT: palpitations Respiratory: ABSENT: dyspnea, hemoptysis Gastrointestinal: ABSENT: dysphagia, hematemesis, nausea Genitourinary: ABSENT: dysuria, hematuria Musculoskeletal: ABSENT: deformity, joint swelling Neurological: ABSENT: syncope, tingling, tremor(s), vertigo Endocrine: ABSENT: polydipsia, polyphagia, polyuria Hematologic/Lymphatic: ABSENT: easy bruising Physical Exam Vital Signs: Temp Pulse Resp BP Pulse Ox 97.7 F 56 L 16 131/80 H 97 06/24/19 07:12 06/24/19 07:12 06/24/19 07:12 06/24/19 07:12 06/24/19 07:12 Intake & Output 06/23/19 06/24/19 06/25/19 06:59 06:59 06:59 Intake Total 2052 1810 100 Output Total 500 Balance 1552 1810 100 Weight 115.5 kg 115.1 kg General appearance: PRESENT: mild distress, well-developed. ABSENT: well- nourished Head exam: ABSENT: normocephalic Eye exam: PRESENT: EOMI. ABSENT: PERRLA, scleral icterus Mouth exam: PRESENT: moist, tongue midline Neck exam: PRESENT: tracheal deviation. ABSENT: meningismus, tenderness Respiratory exam: PRESENT: symmetrical. ABSENT: tachypnea, wheezes Cardiovascular exam: PRESENT: RRR, +S1, +S2 GI/Abdominal exam: PRESENT: normal bowel sounds, soft. ABSENT: Dao's sign, rebound, rigid, tenderness Neurological exam: PRESENT: alert, awake, oriented to person, CN II-XII grossly intact Skin exam: PRESENT: normal color. ABSENT: mottled, urticaria, vesicles Results Laboratory Results: 06/24/19 05:56 06/24/19 05:56 06/24/19 06/24/19 05:56 05:56 WBC 7.8 RBC 3.76 Hgb 7.8 L Hct 24.7 L MCV 66 L MCH 20.7 L MCHC 31.6 L RDW 18.9 H Plt Count 372 Seg Neutrophils % 71.2 Sodium 137.9 Potassium 3.7 Chloride 105 Carbon Dioxide 22 Anion Gap 11 BUN 7 Creatinine 0.53 Est GFR ( Amer) > 60 Glucose 65 L Calcium 7.7 L Total Bilirubin 0.4 AST 25 Alkaline Phosphatase 118 Total Protein 5.7 L Albumin 2.8 L 06/19/19 09:37 Blood Blood Culture - Final NO GROWTH IN 5 DAYS 06/19/19 08:40 Blood Blood Culture - Final NO GROWTH IN 5 DAYS Impressions: Chest X-Ray 06/18/19 21:58 IMPRESSION: No acute disease within the chest. Deviation of the trachea towards the right. A space-occupying paratracheal mass is a possibility, to include lymphadenopathy or thyromegaly. Correlation with CT of the chest is recommended for further assessment. copyright 2010 [employer]- All Rights Reserved Abdomen/Pelvis CT 06/19/19 04:12 IMPRESSION: 1. Findings most compatible with sigmoid diverticulitis. No associated abscess. Underlying colonic malignancy cannot be completely excluded, and followup should be performed as indicated. 2. Masslike enlargement of the left lobe of the thyroid. Associated mild effect on the trachea which is slightly deviated to the right and minimally narrowed at this level. Recommend thyroid US. Reference: J Am Des Radiol. 2014;12(2): 143-50 3. Right ovarian cysts measuring up to 4.4 cm in diameter. Smaller cysts or follicles noted in the left ovary. No follow-up imaging is recommended. Reference: J Am Des Radiol 2013;10:675-[address] 06/19/19 04:13 IMPRESSION: 1. Findings most compatible with sigmoid diverticulitis. No associated abscess. Underlying colonic malignancy cannot be completely excluded, and followup should be performed as indicated. 2. Masslike enlargement of the left lobe of the thyroid. Associated mild effect on the trachea which is slightly deviated to the right and minimally narrowed at this level. Recommend thyroid US. Reference: J Am Des Radiol. 2014;12(2): 143-50 3. Right ovarian cysts measuring up to 4.4 cm in diameter. Smaller cysts or follicles noted in the left ovary. No follow-up imaging is recommended. Reference: J Am Des Radiol 2013;10:675-681 Thyroid Biopsy Ultrasound 06/20/19 00:00 IMPRESSION: Successful fine-needle aspiration of the heterogeneous mass in the left lobe of the thyroid gland. Assessment & Plan - Diagnosis (1) Diverticulitis Is this a current diagnosis for this admission?: Yes Plan: will need 2 weeks worth of antibiotics with gram negative and anaerobic coverage colonoscopy is current a contraindication with active diverticulitis colonoscopy 6 weeks as outpatient (2) Iron deficiency anemia Qualifiers: Iron deficiency anemia type: chronic blood loss Qualified Code(s): D50.0 - Iron deficiency anemia secondary to blood loss (chronic) Is this a current diagnosis for this admission?: Yes Plan: will probably need an EGD as well rule out GI source, outpatient as well will need to exclude any sort of thyroid issue first (3) Nausea and vomiting Qualifiers: Vomiting type: unspecified Vomiting Intractability: non-intractable Qualified Code(s): R11.2 - Nausea with vomiting, unspecified Is this a current diagnosis for this admission?: Yes Plan: seems to have resolved for now feeling better - Time Time Spent: 50 to 70 Minutes
[2019-06-24] MEDS: ONDANSETRON HCL INJ/PF 4 MG/2 ML SDV IV PRN ×2 (12:36→19:50)
[2019-06-24] MEDS: PIPERACILLIN SODIUM/TAZOBACTAM 3.375 GM in NORMAL SALINE 100 ML IV SCH ×3 (13:37→23:46)
[2019-06-24] MEDS: NORMAL SALINE 1000 ML 1,000 ML IV PRN (13:38)
--- NOTE | 2019-06-24 14:10 | RADIOLOGY REPORT (SQ) ---
EXAM DESCRIPTION: CT ABD/PELVIS WITH IV ORAL COMPLETED DATE/TIME: 06/24/2019 1:28 pm REASON FOR STUDY: Diverticulitis/abdominal pain not improved with tr COMPARISON: CT chest abdomen pelvis 06/19/2019 TECHNIQUE: CT scan of the abdomen and pelvis performed using helical scanning technique with dynamic intravenous contrast injection. Patient drank oral contrast. Images reviewed with lung, soft tissue , and bone windows. Reconstructed coronal and sagittal MPR images reviewed. Delayed images for evalua tion of the urinary system also acquired. All images stored on PACS. All CT scanners at this facility use dose modulation, iterative reconstruction, and/or weight based d osing when appropriate to reduce radiation dose to as low as reasonably achievable (ALARA). [facility]: Dose Right [facility]: CareDose [facility]: Dose Right [facility]: Teradose 4D [facility]: VelociData CONTRAST TYPE AND DOSE: contrast/concentration: Isovue 350.00 mg/ml; Total Contrast Delivered: 100.0 ml; Total Saline Delivered: 72.0 ml RENAL FUNCTION: Creatinine 0.5 RADIATION DOSE: CT Rad equipment meets quality standard of care and radiation dose reduction techniq ues were employed. CTDIvol: 24.5 - 24.5 mGy. DLP: 2926 mGy-cm.. LIMITATIONS: None. FINDINGS: Distal descending colon wall thickening, luminal narrowing, and surrounding inflammation f rom acute diverticulitis. And I will left para colonic inflammation is similar compared to 06/19/2019 . No left lower quadrant abscess or extraluminal air is identified. Patient drank oral contrast. Remainder of the gastrointestinal tract is otherwise unremarkable. No bowel obstruction. Since the prior CT exam, patient has developed trace right upper quadrant free fluid between the live r and right hemidiaphragm. No pericolic gutter fluid. No free cul-de-sac pelvic fluid. LOWER CHEST: Trace bilateral pleural effusions. LIVER: Normal size. No masses. No dilated ducts. SPLEEN: Normal size. No focal lesions. PANCREAS: No masses. No significant calcifications. No adjacent inflammation or peripancreatic fluid collections. Pancreatic duct not dilated. GALLBLADDER: Surgically absent ADRENAL GLANDS: No significant masses or asymmetry. RIGHT KIDNEY AND URETER: No solid masses. No significant calcifications. No hydronephrosis or hyd roureter. LEFT KIDNEY AND URETER: No solid masses. No significant calcifications. No hydronephrosis or hydr oureter. AORTA AND VESSELS: No aneurysm. No dissection. Renal arteries, SMA, celiac without stenosis. RETROPERITONEUM: No retroperitoneal adenopathy, hemorrhage or masses. BOWEL AND PERITONEAL CAVITY: As above APPENDIX: Normal. PELVIS: 7 x 4.4 cm right adnexal cystic mass, either ovarian or possibly hydrosalpinx, unchanged from 06/19/2019. Normal size uterus and left ovary. Urinary bladder unremarkable. No free pelvic fluid. ABDOMINAL WALL: No masses. No hernias. BONES: No significant or acute findings. OTHER: No other significant finding. IMPRESSION: Persistent diverticular inflammation along the distal descending colon. No abscess. TECHNICAL DOCUMENTATION: JOB ID: [id number] Quality ID # [id number]: Final reports with documentation of one or more dose reduction techniques (e.g., Au tomated exposure control, adjustment of the mA and/or kV according to patient size, use of iterative reconstruction technique) 2010 [employer]- All Rights Reserved Reading location - IP/workstation name: [email or web address]
[2019-06-25] MEDS: METRONIDAZOLE 500 MG/NS RTU 500 MG/100 ML RTUPB IV SCH ×5 (00:26→23:44)
[2019-06-25] MEDS: PIPERACILLIN SODIUM/TAZOBACTAM 3.375 GM in NORMAL SALINE 100 ML IV SCH ×3 (05:14→17:21)
[2019-06-25] MEDS: NORMAL SALINE 1000 ML 1,000 ML IV PRN ×2 (05:14→20:37)
[2019-06-25 06:09] LABS: HEMATOCRIT 25.2 % (36.0-47.0); MEAN CORPUSCULAR HEMOGLOBIN 20.3 pg (27.0-33.4); MEAN CORPUSCULAR HGB CONC 31.1 g/dL (32.0-36.0); MEAN CORPUSCULAR VOLUME 65 fl (80-97); PLATELET COUNT 417 10^3/uL (150-450); RED BLOOD COUNT 3.87 10^6/uL (3.72-5.28); RED CELL DISTRIBUTION WIDTH 19.5 % (11.5-14.0); WHITE BLOOD COUNT 7.7 10^3/uL (4.0-10.5)
[2019-06-25 06:22] LABS: HEMOGLOBIN 7.9 g/dL (12.0-15.5)
[2019-06-25 06:27] LABS: ALBUMIN 2.7 g/dL (3.5-5.0); ALKALINE PHOSPHATASE 103 U/L (38-126); ANION GAP 10 (5-19); ASPARTATE AMINO TRANSFERASE 23 U/L (14-36); BILIRUBIN,TOTAL 0.3 mg/dL (0.2-1.3); BLOOD UREA NITROGEN 2 mg/dL (7-20); CALCIUM 7.7 mg/dL (8.4-10.2); CARBON DIOXIDE 23 mmol/L (22-30); CHLORIDE 106 mmol/L (98-107); POTASSIUM 3.6 mmol/L (3.6-5.0); TOTAL PROTEIN 5.4 g/dL (6.3-8.2)
[2019-06-25] MEDS: OXYCODONE-ACETAMINOPHEN 5-325 MG TABLET PO PRN ×3 (06:27→20:37)
[2019-06-25] MEDS: ONDANSETRON HCL INJ/PF 4 MG/2 ML SDV IV PRN ×4 (06:27→22:10)
[2019-06-25 06:31] LABS: GLUCOSE 63 mg/dL (75-110)
[2019-06-25] MEDS: SUCRALFATE 1 GM TABLET PO SCH ×4 (08:59→22:01)
[2019-06-25] MEDS: SIMETHICONE 80 MG TAB.CHEW PO SCH (10:21)
[2019-06-25] MEDS: FAMOTIDINE 20 MG TABLET PO SCH ×2 (10:21→22:01)
[2019-06-25] MEDS: FERROUS SULFATE 325 MG TABLET PO SCH ×2 (10:21→17:20)
[2019-06-25] MEDS: DOCUSATE SODIUM 100 MG CAPSULE PO SCH ×2 (10:22→17:19)
[2019-06-25] MEDS: ENOXAPARIN SODIUM INJ 40 MG/0.4 ML DISP.SYRIN SUBCUT SCH (10:22)
[2019-06-25] MEDS: PROMETHAZINE HCL 25 MG TABLET PO PRN ×2 (13:58→20:38)
--- NOTE | 2019-06-25 18:05 | PDOC PROGRESS REPORT ---
Subjective Progress Note for:: 06/25/19 Subjective:: Patient reports that her abdominal pain is slightly better than yesterday but is still prominent. She is tolerating clear liquid diet and so this will be advanced as well. Still with menses. She reports that she typically has very heavy menses. She does report having some difficulty swallowing large pills. This is no doubt the result of the thyroid mass. Reason For Visit: DIVERTICULITIS Physical Exam Vital Signs: Temp Pulse Resp BP Pulse Ox 98.2 F 52 L 16 133/73 H 95 06/25/19 15:10 06/25/19 15:10 06/25/19 15:10 06/25/19 15:10 06/25/19 15:10 Intake & Output 06/24/19 06/25/19 06/26/19 06:59 06:59 06:59 Intake Total 1810 3040 200 Output Total 2500 Balance 1810 540 200 Weight 115.1 kg 117.9 kg General appearance: PRESENT: no acute distress, cooperative, morbidly obese, well-developed Head exam: PRESENT: atraumatic, normocephalic Eye exam: PRESENT: conjunctiva pale. ABSENT: scleral icterus Ear exam: PRESENT: normal external ear exam. ABSENT: bleeding, drainage Mouth exam: PRESENT: moist, tongue midline Neck exam: PRESENT: other - Mass left lobe thyroid Respiratory exam: PRESENT: clear to auscultation jessica, symmetrical, unlabored. ABSENT: rales, rhonchi, tachypnea, wheezes Cardiovascular exam: PRESENT: RRR, +S1, +S2 GI/Abdominal exam: PRESENT: normal bowel sounds, soft, tenderness - Still with tenderness mostly in the left lower quadrant. ABSENT: distended, guarding Rectal exam: PRESENT: deferred Neurological exam: PRESENT: alert, awake, oriented to person, oriented to place, oriented to time, oriented to situation, CN II-XII grossly intact Psychiatric exam: PRESENT: flat affect. ABSENT: agitated, anxious Focused psych exam: ABSENT: delusional, restlessness Skin exam: PRESENT: dry, pallor, warm. ABSENT: rash Results Laboratory Results: 06/25/19 05:47 06/25/19 05:47 06/25/19 06/25/19 05:47 05:47 WBC 7.7 RBC 3.87 Hgb 7.9 L Hct 25.2 L MCV 65 L MCH 20.3 L MCHC 31.1 L RDW 19.5 H Plt Count 417 Sodium 138.5 Potassium 3.6 Chloride 106 Carbon Dioxide 23 Anion Gap 10 BUN 2 L Creatinine 0.54 Est GFR ( Amer) > 60 Glucose 63 L Calcium 7.7 L Magnesium 1.7 Total Bilirubin 0.3 AST 23 Alkaline Phosphatase 103 Total Protein 5.4 L Albumin 2.7 L Impressions: Chest X-Ray 06/18/19 21:58 IMPRESSION: No acute disease within the chest. Deviation of the trachea towards the right. A space-occupying paratracheal mass is a possibility, to include lymphadenopathy or thyromegaly. Correlation with CT of the chest is recommended for further assessment. copyright 2010 [employer]- All Rights Reserved Chest CT 06/19/19 04:13 IMPRESSION: 1. Findings most compatible with sigmoid diverticulitis. No associated abscess. Underlying colonic malignancy cannot be completely excluded, and followup should be performed as indicated. 2. Masslike enlargement of the left lobe of the thyroid. Associated mild effect on the trachea which is slightly deviated to the right and minimally narrowed at this level. Recommend thyroid US. Reference: J Am Des Radiol. 2015 Jun;12(2): 143-50 3. Right ovarian cysts measuring up to 4.4 cm in diameter. Smaller cysts or follicles noted in the left ovary. No follow-up imaging is recommended. Reference: J Am Des Radiol 2013;10:675-681 Thyroid Biopsy Ultrasound 06/20/19 00:00 IMPRESSION: Successful fine-needle aspiration of the heterogeneous mass in the left lobe of the thyroid gland. Abdomen/Pelvis CT 06/24/19 00:00 IMPRESSION: Persistent diverticular inflammation along the distal descending colon. No abscess. Assessment and Plan - Diagnosis (1) Diverticulitis Is this a current diagnosis for this admission?: Yes (2) Abdominal pain, left lower quadrant Is this a current diagnosis for this admission?: Yes (3) Iron deficiency anemia Qualifiers: Iron deficiency anemia type: chronic blood loss Qualified Code(s): D50.0 - Iron deficiency anemia secondary to blood loss (chronic) Is this a current diagnosis for this admission?: Yes (4) Elevated liver enzymes Is this a current diagnosis for this admission?: Yes (5) Thyroid mass of unclear etiology Is this a current diagnosis for this admission?: Yes (6) Follicular neoplasm of thyroid Is this a current diagnosis for this admission?: Yes (7) Nausea and vomiting Qualifiers: Vomiting type: unspecified Vomiting Intractability: non-intractable Qualified Code(s): R11.2 - Nausea with vomiting, unspecified Is this a current diagnosis for this admission?: Yes (8) Morbid obesity with BMI of 40.0-44.9, adult Is this a current diagnosis for this admission?: Yes (9) Heavy menstrual period Qualifiers: Menorrhagia type: with regular cycle Qualified Code(s): N92.0 - Excessive and frequent menstruation with regular cycle Is this a current diagnosis for this admission?: Yes - Plan Summary Summary: 06/25/2019 Diverticulitis-the patient seems to be responding to dual antibiotic therapy. The nausea and vomiting have subsided and the abdominal pain is decreasing. I have advanced her diet and if she is tolerating p.o. I will discharge her on oral antibiotics. Follicular neoplasm of the thyroid-the biopsy was suggestive of follicular neoplasm. I will reconsult with Dr. Siegel and reach out to otolaryngology. Anemia-iron deficiency as well as blood loss from heavy menses. Hemoglobin continues to trend up. We will continue oral iron. No transfusion at this time. Liver enzymes are normalized. - Time Time Spent with patient: 15-24 minutes Medications reviewed and adjusted accordingly: Yes Anticipated discharge: Home Within: within 48 hours
[2019-06-26] MEDS: PIPERACILLIN SODIUM/TAZOBACTAM 3.375 GM in NORMAL SALINE 100 ML IV SCH ×4 (01:00→17:50)
[2019-06-26] MEDS: OXYCODONE-ACETAMINOPHEN 5-325 MG TABLET PO PRN ×2 (03:13→09:46)
[2019-06-26] MEDS: ONDANSETRON HCL INJ/PF 4 MG/2 ML SDV IV PRN ×3 (03:13→15:13)
[2019-06-26] MEDS: SUCRALFATE 1 GM TABLET PO SCH ×4 (07:38→22:30)
[2019-06-26] MEDS: METRONIDAZOLE 500 MG/NS RTU 500 MG/100 ML RTUPB IV SCH (07:38)
[2019-06-26 08:20] LABS: HEMATOCRIT 26.1 % (36.0-47.0); HEMOGLOBIN 8.2 g/dL (12.0-15.5); MEAN CORPUSCULAR HEMOGLOBIN 20.4 pg (27.0-33.4); MEAN CORPUSCULAR HGB CONC 31.3 g/dL (32.0-36.0); MEAN CORPUSCULAR VOLUME 65 fl (80-97); PLATELET COUNT 414 10^3/uL (150-450); RED CELL DISTRIBUTION WIDTH 20.3 % (11.5-14.0); WHITE BLOOD COUNT 6.5 10^3/uL (4.0-10.5)
[2019-06-26] MEDS: ENOXAPARIN SODIUM INJ 40 MG/0.4 ML DISP.SYRIN SUBCUT SCH (09:45)
[2019-06-26] MEDS: SIMETHICONE 80 MG TAB.CHEW PO SCH (09:45)
[2019-06-26] MEDS: FAMOTIDINE 20 MG TABLET PO SCH ×2 (09:46→22:30)
[2019-06-26] MEDS: DOCUSATE SODIUM 100 MG CAPSULE PO SCH ×2 (09:46→17:50)
[2019-06-26] MEDS: FERROUS SULFATE 325 MG TABLET PO SCH ×2 (09:46→17:50)
--- NOTE | 2019-06-26 12:38 | PDOC PROGRESS REPORT ---
Subjective Progress Note for:: 06/26/19 Subjective:: Patient states that her abdominal pain is getting better. She has not been up walking much. She is eating and drinking OK. Reason For Visit: DIVERTICULITIS Physical Exam Vital Signs: Temp Pulse Resp BP Pulse Ox 97.5 F 51 L 16 134/75 H 97 06/26/19 11:42 06/26/19 11:42 06/26/19 11:42 06/26/19 11:42 06/26/19 11:42 Intake & Output 06/25/19 06/26/19 06/27/19 06:59 06:59 06:59 Intake Total 3040 1700 200 Output Total 2500 Balance 540 1700 200 Weight 117.9 kg 117.6 kg 117.6 kg General appearance: PRESENT: obese Head exam: PRESENT: normocephalic Respiratory exam: PRESENT: clear to auscultation jessica, unlabored Cardiovascular exam: PRESENT: RRR Neurological exam: PRESENT: alert, awake Psychiatric exam: PRESENT: appropriate affect Skin exam: PRESENT: normal color Results Laboratory Results: 06/26/19 07:46 06/25/19 05:47 06/26/19 07:46 WBC 6.5 RBC 4.00 Hgb 8.2 L Hct 26.1 L MCV 65 L MCH 20.4 L MCHC 31.3 L RDW 20.3 H Plt Count 414 Impressions: Chest X-Ray 06/18/19 21:58 IMPRESSION: No acute disease within the chest. Deviation of the trachea towards the right. A space-occupying paratracheal mass is a possibility, to include lymphadenopathy or thyromegaly. Correlation with CT of the chest is recommended for further assessment. copyright 2011 [employer]- All Rights Reserved Chest CT 06/19/19 04:13 IMPRESSION: 1. Findings most compatible with sigmoid diverticulitis. No associated abscess. Underlying colonic malignancy cannot be completely excluded, and followup should be performed as indicated. 2. Masslike enlargement of the left lobe of the thyroid. Associated mild effect on the trachea which is slightly deviated to the right and minimally narrowed at this level. Recommend thyroid US. Reference: J Am Des Radiol. 2015 Jun;12(2): 143-50 3. Right ovarian cysts measuring up to 4.4 cm in diameter. Smaller cysts or follicles noted in the left ovary. No follow-up imaging is recommended. Reference: J Am Des Radiol 2013;10:675-681 Thyroid Biopsy Ultrasound 06/20/19 00:00 IMPRESSION: Successful fine-needle aspiration of the heterogeneous mass in the left lobe of the thyroid gland. Abdomen/Pelvis CT 06/24/19 00:00 IMPRESSION: Persistent diverticular inflammation along the distal descending colon. No abscess. Assessment & Plan - Diagnosis (1) Iron deficiency anemia Qualifiers: Iron deficiency anemia type: chronic blood loss Qualified Code(s): D50.0 - Iron deficiency anemia secondary to blood loss (chronic) Is this a current diagnosis for this admission?: Yes Plan: Continue iron supplements. Iron panel with ferritin should be repeated in about 6 weeks. I am happy to see her in the office for this. (2) Diverticulitis Is this a current diagnosis for this admission?: Yes Plan: As per Primary team. She will follow with GI as outpatient for colonoscopy in the future. (3) Thyroid mass of unclear etiology Is this a current diagnosis for this admission?: Yes Plan: Biopsy was suggestive of cancer. I have called and left a message with Dr. Coon for further recommendations. - Time Time Spent with patient: 15-24 minutes - Plan Summary Plan Summary: Patient was also discussed with Dr. Schafer.
[2019-06-26] MEDS ORDERED: MORPHINE SULFATE 10 MG/ML INJ IV ONE (15:43)
--- NOTE | 2019-06-26 15:45 | PDOC PROGRESS REPORT ---
Subjective Progress Note for:: 06/26/19 Subjective:: The patient's and daughter are present today. Evidently the narcotic analgesia dropped off the MAR and so the patient is in a lot of pain. We did review the process of obtaining Medicaid and they are in possession of paperwork that needs to be completed. We also discussed a potential treatment plan for the suspected thyroid cancer. Reason For Visit: DIVERTICULITIS Thyroid follicular neoplasm Physical Exam Vital Signs: Temp Pulse Resp BP Pulse Ox 98.2 F 51 L 16 149/68 H 95 06/26/19 15:15 06/26/19 15:15 06/26/19 15:15 06/26/19 15:15 06/26/19 15:15 Intake & Output 06/25/19 06/26/19 06/27/19 06:59 06:59 06:59 Intake Total 3040 1700 200 Output Total 2500 Balance 540 1700 200 Weight 117.9 kg 117.6 kg 117.6 kg General appearance: PRESENT: cooperative, disheveled, mild distress - Mild to moderate distress, morbidly obese, well-developed Head exam: PRESENT: atraumatic, normocephalic Eye exam: PRESENT: conjunctiva pale Ear exam: PRESENT: normal external ear exam. ABSENT: bleeding, drainage Respiratory exam: PRESENT: clear to auscultation jessica, symmetrical, unlabored. ABSENT: prolonged expiratory phas, rales, rhonchi, tachypnea, wheezes Cardiovascular exam: PRESENT: RRR, +S1, +S2 GI/Abdominal exam: PRESENT: hypoactive bowel sounds, soft, tenderness - Left lower quadrant, other - Protuberant abdomen. ABSENT: guarding Rectal exam: PRESENT: deferred Gentrourinary exam: ABSENT: indwelling catheter Extremities exam: PRESENT: full ROM. ABSENT: pedal edema Musculoskeletal exam: PRESENT: ambulatory, normal inspection. ABSENT: deformity Neurological exam: PRESENT: alert, awake, oriented to person, oriented to place, oriented to time, oriented to situation, CN II-XII grossly intact Psychiatric exam: PRESENT: depressed - Depressed affect, flat affect. ABSENT: agitated, anxious Focused psych exam: ABSENT: delusional, restlessness Results Laboratory Results: 06/26/19 07:46 06/25/19 05:47 06/26/19 07:46 WBC 6.5 RBC 4.00 Hgb 8.2 L Hct 26.1 L MCV 65 L MCH 20.4 L MCHC 31.3 L RDW 20.3 H Plt Count 414 Impressions: Chest X-Ray 06/18/19 21:58 IMPRESSION: No acute disease within the chest. Deviation of the trachea towards the right. A space-occupying paratracheal mass is a possibility, to include lymphadenopathy or thyromegaly. Correlation with CT of the chest is recommended for further assessment. copyright 2010 [employer]- All Rights Reserved Chest CT 06/19/19 04:13 IMPRESSION: 1. Findings most compatible with sigmoid diverticulitis. No associated abscess. Underlying colonic malignancy cannot be completely excluded, and followup should be performed as indicated. 2. Masslike enlargement of the left lobe of the thyroid. Associated mild effect on the trachea which is slightly deviated to the right and minimally narrowed at this level. Recommend thyroid US. Reference: J Am Des Radiol. 2015 Jun;12(2): 143-50 3. Right ovarian cysts measuring up to 4.4 cm in diameter. Smaller cysts or follicles noted in the left ovary. No follow-up imaging is recommended. Reference: J Am Des Radiol 2013;10:675-681 Thyroid Biopsy Ultrasound 06/20/19 00:00 IMPRESSION: Successful fine-needle aspiration of the heterogeneous mass in the left lobe of the thyroid gland. Abdomen/Pelvis CT 06/24/19 00:00 IMPRESSION: Persistent diverticular inflammation along the distal descending colon. No abscess. Assessment and Plan - Diagnosis (1) Diverticulitis Is this a current diagnosis for this admission?: Yes (2) Abdominal pain, left lower quadrant Is this a current diagnosis for this admission?: Yes (3) Iron deficiency anemia Qualifiers: Iron deficiency anemia type: chronic blood loss Qualified Code(s): D50.0 - Iron deficiency anemia secondary to blood loss (chronic) Is this a current diagnosis for this admission?: Yes (4) Elevated liver enzymes Is this a current diagnosis for this admission?: Yes (5) Thyroid mass of unclear etiology Is this a current diagnosis for this admission?: Yes (6) Follicular neoplasm of thyroid Is this a current diagnosis for this admission?: Yes (7) Nausea and vomiting Qualifiers: Vomiting type: unspecified Vomiting Intractability: non-intractable Qualified Code(s): R11.2 - Nausea with vomiting, unspecified Is this a current diagnosis for this admission?: Yes (8) Morbid obesity with BMI of 40.0-44.9, adult Is this a current diagnosis for this admission?: Yes (9) Heavy menstrual period Qualifiers: Menorrhagia type: with regular cycle Qualified Code(s): N92.0 - Excessive and frequent menstruation with regular cycle Is this a current diagnosis for this admission?: Yes - Plan Summary Summary: 06/25/2019 Diverticulitis-the patient seems to be responding to dual antibiotic therapy. The nausea and vomiting have subsided and the abdominal pain is decreasing. I have advanced her diet and if she is tolerating p.o. I will discharge her on oral antibiotics. Follicular neoplasm of the thyroid-the biopsy was suggestive of follicular neoplasm. I will reconsult with Dr. Siegel and reach out to otolaryngology. Anemia-iron deficiency as well as blood loss from heavy menses. Hemoglobin continues to trend up. We will continue oral iron. No transfusion at this time. Liver enzymes are normalized. 06/26/2019 Diverticulitis-we will continue the dual therapy with Zosyn and metronidazole. She is still having pain but the analgesia dropped off tomorrow and so it will be renewed and that should help the abdominal pain. Iron deficiency anemia-continue iron supplements. Dr. Siegel is following and will see the patient as an outpatient. Her hemoglobin is 8.2 today. He continues to improve. The patient also reports heavy menses and it may be beneficial for her to see gynecology. Elevated liver enzymes have resolved Nausea and vomiting has resolved Morbid obesity-the patient should embark on an aggressive weight loss program as that will provide many benefits to her overall health and decrease risk of sev ere illness. Thyroid mass possible follicular neoplasm-the patient currently has no insurance. They are working on Medicaid versus charitable care. Dr. Siegel was able to discuss the case with an warehouse processor (Dr. Coon) and I spoke with otolaryngology Dr. Gracia. A cursory review of the case and potential treatment plans appear to start with surgery. They will both see the patient in follow-u p. - Time Time Spent with patient: 25-34 minutes Medications reviewed and adjusted accordingly: Yes Anticipated discharge: Home Within: within 24 hours
[2019-06-26] MEDS: NORMAL SALINE 1000 ML 1,000 ML IV PRN ×2 (16:26→23:47)
[2019-06-26] MEDS: HYDROCODONE/ACETAMINOPHEN 7.5-325 MG TABLET PO PRN (22:30)
[2019-06-27] MEDS: PIPERACILLIN SODIUM/TAZOBACTAM 3.375 GM in NORMAL SALINE 100 ML IV SCH ×3 (01:17→14:06)
[2019-06-27] MEDS: METRONIDAZOLE 500 MG/NS RTU 500 MG/100 ML RTUPB IV SCH ×3 (01:22→12:15)
[2019-06-27] MEDS: HYDROCODONE/ACETAMINOPHEN 7.5-325 MG TABLET PO PRN ×3 (02:47→14:06)
[2019-06-27] MEDS: ONDANSETRON HCL INJ/PF 4 MG/2 ML SDV IV PRN ×3 (02:57→14:06)
[2019-06-27] MEDS: SUCRALFATE 1 GM TABLET PO SCH ×3 (09:10→15:21)
[2019-06-27] MEDS: SIMETHICONE 80 MG TAB.CHEW PO SCH (09:11)
[2019-06-27] MEDS: FAMOTIDINE 20 MG TABLET PO SCH (09:11)
[2019-06-27] MEDS: FERROUS SULFATE 325 MG TABLET PO SCH (09:11)
[2019-06-27] MEDS: DOCUSATE SODIUM 100 MG CAPSULE PO SCH (09:11)
[2019-06-27] MEDS: ENOXAPARIN SODIUM INJ 40 MG/0.4 ML DISP.SYRIN SUBCUT SCH (09:11)
[2019-06-27] MEDS ORDERED: NORMAL SALINE 1000 ML 1,000 ML IV ONE (15:51)
--- NOTE | 2019-06-27 16:04 | PDOC DISCHARGE SUMMARY ---
Impression - Admit/DC Date/PCP Admission Date/Primary Care Provider: 06/21/19 13:49 Discharge Date: 06/27/19 - Discharge Diagnosis (1) Diverticulitis Is this a current diagnosis for this admission?: Yes (2) Abdominal pain, left lower quadrant Is this a current diagnosis for this admission?: Yes (3) Iron deficiency anemia Is this a current diagnosis for this admission?: Yes (4) Elevated liver enzymes Is this a current diagnosis for this admission?: Yes (5) Thyroid mass of unclear etiology Is this a current diagnosis for this admission?: Yes (6) Follicular neoplasm of thyroid Is this a current diagnosis for this admission?: Yes (7) Nausea and vomiting Is this a current diagnosis for this admission?: Yes (8) Morbid obesity with BMI of 40.0-44.9, adult Is this a current diagnosis for this admission?: Yes (9) Heavy menstrual period Is this a current diagnosis for this admission?: Yes - Assessment Summary: 06/25/2019 Diverticulitis-the patient seems to be responding to dual antibiotic therapy. The nausea and vomiting have subsided and the abdominal pain is decreasing. I have advanced her diet and if she is tolerating p.o. I will discharge her on oral antibiotics. Follicular neoplasm of the thyroid-the biopsy was suggestive of follicular neoplasm. I will reconsult with Dr. Siegel and reach out to otolaryngology. Anemia-iron deficiency as well as blood loss from heavy menses. Hemoglobin continues to trend up. We will continue oral iron. No transfusion at this time. Liver enzymes are normalized. 06/26/2019 Diverticulitis-we will continue the dual therapy with Zosyn and metronidazole. She is still having pain but the analgesia dropped off tomorrow and so it will be renewed and that should help the abdominal pain. Iron deficiency anemia-continue iron supplements. Dr. Siegel is following and will see the patient as an outpatient. Her hemoglobin is 8.2 today. He continues to improve. The patient also reports heavy menses and it may be beneficial for her to see gynecology. Elevated liver enzymes have resolved Nausea and vomiting has resolved Morbid obesity-the patient should embark on an aggressive weight loss program as that will provide many benefits to her overall health and decrease risk of severe illness. Thyroid mass possible follicular neoplasm-the patient currently has no insurance. They are working on Medicaid versus [facility] [place]. Dr. Siegel was able to discuss the case with an make up artist (Dr. Mena) and I spoke with otolaryngology Dr. Gracia. A cursory review of the case and potential treatment plans appear to start with surgery. They will both see the patient in follow- up. 06/27/2019 The patient is still having discomfort. Despite ongoing treatment her pain appears to be unchanged and some of this could be because she just lays in bed she does not get out of bed she does not do anything in the room. She has no nausea or vomiting. I did let her know that both endocrinology and otolaryngology have agreed to see her but she still has to work on her paperwork for Medicaid or assistance from the hospital. Her affect remained flat and she did not seem happy that her potential cancerous lesion was going to be addressed despite not having any insurance. I will discharge her on metronidazole and Keflex because she cannot tolerate fluoroquinolones. She will have 10 days of each. I prescribed 15 [place] tablets and Phenergan tablets. I told her she can return to work on Sunday and a note was provided to acknowledge her hospital admission and length of stay to her educational program. She is attempting to get her GED. - Additional Information Resuscitation Status: Full Code Discharge Diet: Regular Discharge Activity: Activity As Tolerated, Other Referrals: GENTRY SPEARS MD [ACTIVE STAFF] - (in 4 weeks, please call to arrange. ) KRISTEN MENA MD [NO LOCAL MD] - (in 4 weeks. Please call for appointment. ) Prescriptions: Metronidazole [Flagyl 500 mg Tablet] 500 mg PO TID #30 tablet Cephalexin Monohydrate [Keflex 500 mg Capsule] 500 mg PO TID #30 capsule Hydrocodone/Acetaminophen [[place] 5-325 mg Tablet] 1 tab PO Q8HP PRN 5 Days #15 PRN Reason: For Pain Scale 4-5 Hydrocodone/Acetaminophen [[place] 5-325 mg Tablet] 1 tab PO Q8H PRN 5 Days #15 tablet PRN Reason: For Pain Scale 4-5 Promethazine HCl [Phenergan 25 mg Tablet] 25 mg PO Q6H PRN #20 tablet PRN Reason: For Nausea/Vomiting Home Medications: Ferrous Sulfate [Feosol 325 mg Tablet] 325 mg PO DAILY #30 tab 10/20/18 Sucralfate [Carafate 1 gm Tablet] 1 gm PO ACHS #120 tablet 10/20/18 Aspirin/Caffeine [Bc Powder Packet] 1 packet PO BID 06/19/19 Simethicone [Gas-X Ultra Strength] 180 mg PO DAILY 06/19/19 Cephalexin Monohydrate [Keflex 500 mg Capsule] 500 mg PO TID #30 capsule 06/27/19 Docusate Sodium [Colace 100 mg Capsule] 200 mg PO BID capsule 06/27/19 Famotidine [Pepcid 20 mg Tablet] 20 mg PO Q12 tablet 06/27/19 Hydrocodone/Acetaminophen [[place] 5-325 mg Tablet] 1 tab PO Q8H PRN 5 Days #15 tablet 06/27/19 Hydrocodone/Acetaminophen [[place] 5-325 mg Tablet] 1 tab PO Q8HP PRN 5 Days #15 06/27/19 Metronidazole [Flagyl 500 mg Tablet] 500 mg PO TID #30 tablet 06/27/19 Promethazine HCl [Phenergan 25 mg Tablet] 25 mg PO Q6H PRN #20 tablet 06/27/19 History of Present Illiness History of Present Illness: CRUZITO PANDYA is a 43 year old female with no significant past medical history except for endometriosis status post surgery 2 years ago, presenting to ED complaining of left lower quadrant abdominal pain x1 day. Pain is constant, sharp, 5/5, nonradiating, worse with sitting and movement, no alleviating factor. She denies any fever, chills, nausea, vomiting, diarrhea, constipation or any urinary symptoms, she is p.o. tolerant. In ED CT of abdomen showed compatible with sigmoid diverticulitis. Hospital Course Hospital Course: As outlined above the hospital course was slow. The patient's white blood cell count normalized but she continued to have pain. Nausea and vomiting had reso lved. I explained to the patient that she would have pain at discharge and the plan was not to stay in the hospital until she was pain-free. She was able to have a fine-needle aspiration of the thyroid mass. This was suggestive of follicular neoplasm. We have arranged for outpatient follow-up. The patient will be discharged with antibiotics, pain medication and antiemetics. Physical Exam Vital Signs: Temp Pulse Resp BP Pulse Ox 97.7 F 64 16 130/67 H 97 06/27/19 11:39 06/27/19 11:39 06/27/19 11:39 06/27/19 11:39 06/27/19 11:39 Intake & Output 06/26/19 06/27/19 06/28/19 06:59 06:59 06:59 Intake Total 1700 2288 100 Balance 1700 2288 100 Weight 117.6 kg 117.6 kg General appearance: PRESENT: mild distress, morbidly obese Respiratory exam: PRESENT: clear to auscultation jessica Cardiovascular exam: PRESENT: RRR, +S1, +S2 GI/Abdominal exam: PRESENT: normal bowel sounds, soft, tenderness - Left lower quadrant Neurological exam: PRESENT: alert, awake, oriented to person, oriented to place, oriented to time, oriented to situation Psychiatric exam: PRESENT: flat affect Results Laboratory Results: WBC 6.5 10^3/uL (4.0-10.5) 06/26/19 07:46 RBC 4.00 10^6/uL (3.72-5.28) 06/26/19 07:46 Hgb 8.2 g/dL (12.0-15.5) L 06/26/19 07:46 Hct 26.1 % (36.0-47.0) L 06/26/19 07:46 MCV 65 fl (80-97) L 06/26/19 07:46 MCH 20.4 pg (27.0-33.4) L 06/26/19 07:46 MCHC 31.3 g/dL (32.0-36.0) L 06/26/19 07:46 RDW 20.3 % (11.5-14.0) H 06/26/19 07:46 Plt Count 414 10^3/uL (150-450) 06/26/19 07:46 Lymph % (Auto) 18.7 % (13-45) 06/24/19 05:56 [place] % (Auto) 7.5 % (3-13) 06/24/19 05:56 Eos % (Auto) 1.8 % (0-6) 06/24/19 05:56 Baso % (Auto) 0.8 % (0-2) 06/24/19 05:56 Reticulocyte # 0.046 10^6/uL (0.028-0.122) 06/18/19 22:44 Absolute Neuts (auto) 5.6 10^3/uL (1.7-8.2) 06/24/19 05:56 Absolute Lymphs (auto) 1.5 10^3/uL (0.5-4.7) 06/24/19 05:56 Absolute Monos (auto) 0.6 10^3/uL (0.1-1.4) 06/24/19 05:56 Absolute Eos (auto) 0.1 10^3/uL (0.0-0.6) 06/24/19 05:56 Absolute Basos (auto) 0.1 10^3/uL (0.0-0.2) 06/24/19 05:56 Seg Neutrophils % 71.2 % (42-78) 06/24/19 05:56 Platelet Comment ADEQUATE 06/22/19 05:48 Polychromasia 1+ 06/22/19 05:48 Hypochromasia 2+ 06/22/19 05:48 Poikilocytosis 1+ 06/22/19 05:48 Anisocytosis 2+ 06/22/19 05:48 Microcytosis 2+ 06/22/19 05:48 Target Cells 1+ 06/22/19 05:48 Tear Drop Cells SLIGHT 06/18/19 22:44 Ovalocytes 1+ 06/22/19 05:48 Retic Count (auto) 1.14 % (0.66-2.85) 06/18/19 22:44 PT 14.6 SEC (11.4-15.4) 06/20/19 10:15 INR 1.13 06/20/19 10:15 Sodium 138.5 mmol/L (137-145) 06/25/19 05:47 Potassium 3.6 mmol/L (3.6-5.0) 06/25/19 05:47 Chloride 106 mmol/L (98-107) 06/25/19 05:47 Carbon Dioxide 23 mmol/L (22-30) 06/25/19 05:47 Anion Gap 10 (5-19) 06/25/19 05:47 BUN 2 mg/dL (7-20) L 06/25/19 05:47 Creatinine 0.54 mg/dL (0.52-1.25) 06/25/19 05:47 Est GFR ( Amer) > 60 (>60) 06/25/19 05:47 Est GFR (MDRD) Non-Af > 60 (>60) 06/25/19 05:47 Glucose 63 mg/dL (75-110) L 06/25/19 05:47 POC Glucose 94 mg/dL (70-110) 06/25/19 06:57 Hemoglobin A1c % 5.1 % (4.7-6.0) 06/20/19 04:12 Calcium 7.7 mg/dL (8.4-10.2) L 06/25/19 05:47 Magnesium 1.7 mg/dL (1.6-2.3) 06/25/19 05:47 Iron 16.0 ug/dL (37-170) L 06/18/19 22:44 TIBC 375 ug/dL (250-450) 06/18/19 22:44 % Saturation 4 % 06/18/19 22:44 Ferritin 19.10 ng/mL (6.2-137.0) 06/18/19 22:44 Total Bilirubin 0.3 mg/dL (0.2-1.3) 06/25/19 05:47 Direct Bilirubin 0.0 mg/dL (0.0-0.4) 06/25/19 05:47 Neonat Total Bilirubin Not Reportable 06/25/19 05:47 Neonat Direct Bilirubin Not Reportable 06/25/19 05:47 Neonat Indirect Bili Not Reportable 06/25/19 05:47 AST 23 U/L (14-36) 06/25/19 05:47 ALT 23 U/L (<35) 06/25/19 05:47 Alkaline Phosphatase 103 U/L (38-126) 06/25/19 05:47 Total Protein 5.4 g/dL (6.3-8.2) L 06/25/19 05:47 Albumin 2.7 g/dL (3.5-5.0) L 06/25/19 05:47 Triglycerides 37 mg/dL (<150) 06/20/19 04:12 Cholesterol 123.03 mg/dL (0-200) 06/20/19 04:12 LDL Cholesterol Direct 82 mg/dL (<100) 06/20/19 04:12 VLDL Cholesterol 7.0 mg/dL (10-31) L 06/20/19 04:12 HDL Cholesterol 36 mg/dL (>40) L 06/20/19 04:12 Lipase 17.2 U/L (23-300) L 06/18/19 22:44 Vitamin B12 242.0 pg/mL (239-931) 06/18/19 22:44 Folate 7.82 ng/mL (>2.76) 06/18/19 22:44 TSH 2.35 uIU/mL (0.47-4.68) 06/18/19 22:44 Free T4 0.79 ng/dL (0.78-2.19) 06/18/19 22:44 Free T3 pg/mL 2.74 pg/mL (2.77-5.27) L 06/18/19 22:44 Urine Color YELLOW 06/18/19 22:44 Urine Appearance SLIGHTLY-CLOUDY 06/18/19 22:44 Urine pH 6.0 (5.0-9.0) 06/18/19 22:44 Ur Specific [place] 1.015 06/18/19 22:44 Urine Protein NEGATIVE mg/dL (NEGATIVE) 06/18/19 22:44 Urine Glucose (UA) NEGATIVE mg/dL (NEGATIVE) 06/18/19 22:44 Urine Ketones NEGATIVE mg/dL (NEGATIVE) 06/18/19 22:44 Urine Blood MODERATE (NEGATIVE) H 06/18/19 22:44 Urine Nitrite (Reflex) NEGATIVE (NEGATIVE) 06/18/19 22:44 Urine Bilirubin NEGATIVE (NEGATIVE) 06/18/19 22:44 Urine Urobilinogen 2.0 mg/dL (<2.0) H 06/18/19 22:44 Leukocyte Esterase Rfl NEGATIVE (NEGATIVE) 06/18/19 22:44 Urine RBC (Auto) 7 /HPF 06/18/19 22:44 Urine Bacteria (Auto) 1+ /HPF 06/18/19 22:44 Urine WBC (Reflex) 3 /HPF 06/18/19 22:44 Squamous Epi Cells Auto 10 /HPF 06/18/19 22:44 Urine Mucus (Auto) OCC /LPF 06/18/19 22:44 Urine Ascorbic Acid 40 (NEGATIVE) H 06/18/19 22:44 Stool Occult Blood NEGATIVE (NEGATIVE) 06/22/19 16:39 Slides for Path Review PATHOLOGIST REVIEWED 06/18/19 22:44 Impressions: Chest X-Ray 06/18/19 21:58 IMPRESSION: No acute disease within the chest. Deviation of the trachea towards the right. A space-occupying paratracheal mass is a possibility, to include lymphadenopathy or thyromegaly. Correlation with CT of the chest is recommended for further assessment. copyright 2010 [employer]- All Rights Reserved Abdomen/Pelvis CT 06/19/19 04:12 IMPRESSION: 1. Findings most compatible with sigmoid diverticulitis. No associated abscess. Underlying colonic malignancy cannot be completely excluded, and followup should be performed as indicated. 2. Masslike enlargement of the left lobe of the thyroid. Associated mild effect on the trachea which is slightly deviated to the right and minimally narrowed at this level. Recommend thyroid US. Reference: J Am Des Radiol. 2014;12(2): 143-50 3. Right ovarian cysts measuring up to 4.4 cm in diameter. Smaller cysts or follicles noted in the left ovary. No follow-up imaging is recommended. Reference: J Am Des Radiol 2013;10:675-[address] 06/19/19 04:13 IMPRESSION: 1. Findings most compatible with sigmoid diverticulitis. No associated abscess. Underlying colonic malignancy cannot be completely excluded, and followup should be performed as indicated. 2. Masslike enlargement of the left lobe of the thyroid. Associated mild effect on the trachea which is slightly deviated to the right and minimally narrowed at this level. Recommend thyroid US. Reference: J Am Des Radiol. 2014;12(2): 143-50 3. Right ovarian cysts measuring up to 4.4 cm in diameter. Smaller cysts or follicles noted in the left ovary. No follow-up imaging is recommended. Reference: J Am Des Radiol 2013;10:675-681 Thyroid Biopsy Ultrasound 06/20/19 00:00 IMPRESSION: Successful fine-needle aspiration of the heterogeneous mass in the left lobe of the thyroid gland. Abdomen/Pelvis CT 06/24/19 00:00 IMPRESSION: Persistent diverticular inflammation along the distal descending colon. No abscess. Plan Health Concerns: Potential thyroid cancer Plan of Treatment: Complete antibiotic therapy. Pain medications for short-term. Follow-up with primary care as well as the specialist outlined above. It is imperative that she fill out the forms for indigent patient status and/or Medicaid. Goals: Resolution of diverticulitis. Final diagnosis and treatment plan for thyroid mass. Time Spent: Greater than 30 Minutes Stroke Is this a Stroke Patient?: No Acute Heart Failure - Is this a Heart Failure Patient?: No
[2019-06-27 17:04] VITALS: BP 118/64
== END 2019-06-27 19:03 | disposition home or self-care (01) | DRG 392 ==
LOC: ER 21:19 → INTOOBSV 06-19 07:49 → EH 06-19 07:49 → 4N 06-19 14:18 → OBSVTOIN 06-21 13:49 → 2N 06-23 10:56
PROVIDERS: ADMIT Internal Medicine; ATTEND Internal Medicine
PROC: 0GBG3ZX Excision of Left Thyroid Gland Lobe, Percutaneous Approach, Diagnostic (ICD-10-PCS; principal; 2019-06-20)
PROC: 3E02340 Introduction of Influenza Vaccine into Muscle, Percutaneous Approach (ICD-10-PCS; 2019-06-27)
DX: K57.32 Diverticulitis of large intestine without perforation or abscess without bleeding (principal); Z68.41 Body mass index [BMI] 40.0-44.9, adult; D49.7 Neoplasm of unspecified behavior of endocrine glands and other parts of nervous system; E66.01 Morbid (severe) obesity due to excess calories; D50.0 Iron deficiency anemia secondary to blood loss (chronic); F17.200 Nicotine dependence, unspecified, uncomplicated; N92.0 Excessive and frequent menstruation with regular cycle; R94.5 Abnormal results of liver function studies; Z79.82 Long term (current) use of aspirin; Z23 Encounter for immunization
CPT/HCPCS: 36415; 60100; 70490; 71046; 71260; 74177; 80048; 80053; 80061; 81001; 82272; 82607; 82728; 82746; 82962; 83036; 83540; 83550; 83690; 83735; 84439; 84443; 84481; 85025; 85027; 85045; 85610; 87040; 88173; 90686; 93005; 93010; 96374; 99285; G0378; J0696; J0744; J1170; J1650; J1956; J2270; J2405; J2543; J3490; J7030; J7050